=== PATIENT | male | born 1955 | race Caucasian/White ===

== ENCOUNTER → 2019-11-27 10:46 | Outpatient (CLI) | payer OTHER, SELFPAY ==
--- NOTE | ~2019-11-27 | US_ITS ---
EXAMINATION: US aorta DATE: 11/27/2019 11:02 INDICATION: Abdominal aortic aneurysm. TECHNIQUE: Grayscale, color Doppler, and pulsed Doppler images of the aorta and common iliac arteries were obtained. COMPARISON: CT abdomen and pelvis 12/15/2009 FINDINGS: The aorta demonstrates a 6.9 x 6.1 cm fusiform infrarenal aortic aneurysm. The right common iliac art mc measures 1.3 cm. The left common iliac artery measures 1.2 cm. IMPRESSION: 1. 6.9 cm fusiform infrarenal aortic aneurysm. Abdomen and pelvis CTA and surgical consultation are r ecommended. I called this result to Trang Ahumada on 11/27/19 at 11:39 AM. Reviewed, dictated and finalized at location A. ING TEACHER IMPRESSION: 1. 6.9 cm fusiform infrarenal aortic aneurysm. Abdomen and pelvis CTA and surgi kasey consultation are recommended. I called this result to Trang Ahumada on at 11:39 AM.
== END ==
PROVIDERS: PCP Family Medicine Adolescent Medicine; Visit Provider Family Medicine Adolescent Medicine
DX: I71.4 Abdominal aortic aneurysm, without rupture (principal)
CPT/HCPCS: 76775

== ENCOUNTER 2020-01-14 08:23 | Outpatient (CLI) | payer OTHER, SELFPAY ==
--- NOTE | ~2020-01-14 | NM_ITS ---
EXAMINATION: NM etelvina stress w perfusion DATE: 01/14/2020 11:33 INDICATION: Dyspnea TECHNIQUE: Rest images were obtained following intravenous administration of 10.08 mCi Tc99m tetrofos min (Myoview). The patient was infused intravenously with Lexiscan (Regadenoson). Then, 32.2 mCi Tc99 m tetrofosmin (Myoview) was administered intravenously, and stress images were obtained. Data was rec onstructed into short axis and horizontal and vertical long axis SPECT images. Gated SPECT images wer e also obtained. COMPARISON: None. FINDINGS: Moderate to severe partially reversible perfusion defect involving the mid and basilar infe rolateral and anterolateral segments consistent with combination of infarct and ischemia. There is ad ditional reversible ischemia mild at the apex, severe at the apical and mid anterior segments and mi ld to moderate at the apical, mid and basilar inferior segments. There is left ventricular enlargemen t with calculated end-diastolic volume of 233 mL. There is decreased wall motion correspond to the re gions of perfusion abnormality along the anterior, lateral and inferior caba. Left ventricular eject ion fraction measures 29%. IMPRESSION: 1. Combination of ischemia and infarct in the left circumflex coronary artery vascular distribution w ith additional large region of ischemia in the left anterior descending coronary artery vascular dist ribution. 2. Left ventricular enlargement with significantly decreased wall motion in the region of ischemia an d infarct resulting in moderately decreased left ventricular ejection fraction measuring 29%. Reviewed, dictated and finalized at location A. IMPRESSION: 1. Combination of ischemia and infarct in the left circumflex coronary artery v ascular distribution with additional large region of ischemia in the left anter ior descending coronary artery vascular distribution. 2. Left ventricular enlargement with significantly decreased wall motion in the region of ischemia and infarct resulting in moderately decreased left ventricu lar ejection fraction measuring 29%.
--- NOTE | 2020-01-14 08:28 | ECHO_ITS ---
Patient Info Name: Mark Coelho Age: 64 years : 1955 Gender: Male Ht: 68 in Wt: 180 lbs BSA: 2.00 m2 HR: 72 bpm BP: 133 / 92 mmHg Technical Quality: Good Exam Date: 01/14/2020 8:36 AM Exam Location: [facility] Patient Status: Outpatient Admit Date: 01/14/2020 Staff Ordering Physician: Enrique Poon DO Quality Control Lab Technician: Jessica Knight RDCS Attending Provider: Enrique Poon DO Referring Physician: Cleve ALVAREZ; Exam Type: CA echo doppler color flow Study Info Indications R06.09 - Other forms of dyspnea Complete two-dimensional, color flow and Doppler transthoracic echocardiogram is performed. Summary 1. Left ventricular chamber dimension is severely enlarged. 2. Entire posterior wall and entire lateral wall are akinetic. Inferior wall is hypokinetic. 3. Left ventricular systolic function is severely reduced, estimated at 25-30%. 4. The left ventricular diastolic function is grade I diastolic dysfunction. 5. E/e' 12 is mildly elevated. 6. Global longitudinal strain is abnormal at -7.0%. 7. Left atrial chamber dimension is mildly enlarged. 8. There is moderate aortic valve sclerosis. 9. There is mild aortic valve regurgitation. 10. No pulmonary hypertension, estimated pulmonary arterial systolic pressure of 30 mmHg. 11. There is mild tricuspid valve regurgitation. Left Ventricle E/e' 12 is mildly elevated. Global longitudinal strain is abnormal at -7.0%. Entire posterior wall and entire lateral wall are akinetic. Inferior wall is hypokinetic. Left ventricular chamber dimension is severely enlarged. Left ventricular systolic function is severely reduced, estimated at 25-30%. The left ventricular diastolic function is grade I diastolic dysfunction. Right Ventricle Right ventricular chamber dimension is normal. Right ventricular systolic function is normal. Left Atria Left atrial chamber dimension is mildly enlarged. Right Atria Right atrial chamber dimension is normal. Aortic Valve The aortic valve is trileaflet. There is moderate aortic valve sclerosis. There is no aortic valve stenosis. There is mild aortic valve regurgitation. Pulmonic Valve There is no pulmonic regurgitation. Mitral Valve There is no mitral valve stenosis. There is no mitral valve regurgitation. Tricuspid Valve No pulmonary hypertension, estimated pulmonary arterial systolic pressure of 30 mmHg. There is mild tricuspid valve regurgitation. Pericardium/Pleural There is no pericardial effusion. Inferior Vena Cava Normal inferior vena cava with >50% collapse upon inspiration consistent with normal right atrial pressure, 5 mmHg. Aorta The aortic root size at the sinus of Valsalva is normal. Tricuspid Valve Name Value Normal Estimated PAP/RSVP RA Pressure 5 mmHg <=5 Report Signatures
--- NOTE | 2020-01-14 08:28 | EST_ITS ---
Patient Info Name: Mark Coelho Age: 64 years : 1955 Gender: Male Ht: 68 in Wt: 180 lbs BSA: 2.00 m2 HR: 67 bpm BP: 116 / 74 mmHg Exam Date: 01/14/2020 9:50 AM Exam Location: [facility] Stress Patient Status: Outpatient Admit Date: 01/14/2020 Staff Ordering Physician: Enrique Poon DO Attending Provider: Enrique Poon DO Exercise Technologist: Jessica Knight RDCS Exercise Physician: Enrique Poon DO Exam Type: CA stress etelvina w NM Study Info Indications R06.09 - Other forms of dyspnea A regadenoson stress test was performed. Summary 1. 1. Negative lexiscan stress test for ischemic ST changes by ECG criteria. 2. 2. Stable hemodynamics throughout the test. 3. 3. Nuclear scan to follow and will be reported separately. Please correlate with it. 4. 4. Patient informed of the above results. Protocol: Lexiscan Stress ECG Details Stage: REST Duration (min): 25 min : 45 sec HR (bpm): 68 SBP (mmHg): 116 DBP (mmHg): 74 Stage: REST Duration (min): 30 min : 38 sec HR (bpm): 67 SBP (mmHg): 116 DBP (mmHg): 74 Stage: STAGE 1 Duration (min): 0 min : 59 sec HR (bpm): 78 SBP (mmHg): 131 DBP (mmHg): 76 Stage: RECOVERY Duration (min): 1 min : 0 sec HR (bpm): 92 SBP (mmHg): 131 DBP (mmHg): 76 Stage: RECOVERY Duration (min): 2 min : 0 sec HR (bpm): 90 SBP (mmHg): 131 DBP (mmHg): 76 Stage: RECOVERY Duration (min): 3 min : 0 sec HR (bpm): 91 SBP (mmHg): 106 DBP (mmHg): 69 Stage: RECOVERY Duration (min): 4 min : 0 sec HR (bpm): 85 SBP (mmHg): 106 DBP (mmHg): 69 Stage: RECOVERY Duration (min): 4 min : 38 sec HR (bpm): 89 SBP (mmHg): 113 DBP (mmHg): 69 Rest HR: 67 bpm Peak HR: 92 bpm Rest Sys BP: 116 mmHg Peak Sys BP: 131 mmHg Max Pred HR: 154 bpm % Max Pred HR: 60 % Target HR: 131 bpm Max RPP: 12,052 bpm*mmHg Termination Reason: Completed protocol Cardiac Symptoms: Chest tightness, sob, upset stomach Total Time: 1 min : 0 sec Rest Ann BP: 74 mmHg Peak Ann BP: 76 mmHg Total Dose: 0.4 mg Resting ECG Sinus rhythm, IVCD, borderline ST-T wave in inf/lat leads. Stress ECG No ST changes. Arrhythmias None. Report Signatures
== END 2020-01-14 08:24 | disposition home or self-care (01) ==
LOC: ANHCARD 08:26
PROVIDERS: PCP Family Medicine Adolescent Medicine; Visit Provider Internal Medicine Cardiovascular Disease
DX: R06.09 Other forms of dyspnea (principal); I25.9 Chronic ischemic heart disease, unspecified; I21.9 Acute myocardial infarction, unspecified; I51.7 Cardiomegaly
CPT/HCPCS: 78452; 93017; 93306; A9502; J2785

== ENCOUNTER 2020-03-03 00:29 | Outpatient (CLI) | payer OTHER, SELFPAY ==
[2020-03-03 18:40] LABS: SARS-CoV-2 RNA PCR Negative
== END 2020-03-03 00:30 | disposition home or self-care (01) ==
LOC: ANHCOVIDDT 00:29
PROVIDERS: PCP Family Medicine Adolescent Medicine; Visit Provider Specialist
DX: Z01.818 Encounter for other preprocedural examination (principal); Z11.59 Encounter for screening for other viral diseases
CPT/HCPCS: 87635; C9803; U0003

== ENCOUNTER 2020-03-06 05:38 | Day surgery (SDC) | payer OTHER, SELFPAY ==
[2020-03-06] VITALS (15 sets, daily range): BP systolic 105–134; BP diastolic 67–94; PULSE 59–78; RESP 14–20; TEMP 36.3; O2SAT 96–100; BMI 28.2
[2020-03-06 07:47] LABS: Basophils Absolute Auto 0.1 K/mm3 (0.0-0.1); Eosinophils Absolute Auto 0.3 K/mm3 (0-0.3); Eosinophils Percent Auto 4.9 % (0-4.4); Hematocrit 37.2 % (42.0-52.0); Hemoglobin 12.6 g/dL (14.0-18.0); Immature Granulocyte Absolute 0.02 K/mm3 (0.00-0.031); Immature Granulocyte Percent A 0.3 % (0-0.5); Lymphocytes Absolute Auto 1.35 K/mm3 (0.9-3.2); Mean Corpuscular HGB Conc 33.9 g/dl (32-36); Mean Corpuscular Hemoglobin 31.2 pg (26-34); Mean Corpuscular Volume 92.1 fl (80-100); Mean Platelet Volume 9.8 fl (7.4-10.4); Monocytes Absolute Auto 0.6 K/mm3 (0.1-0.6); Monocytes Percent Auto 10.3 % (2.6-8.5); Neutrophils Absolute Auto 3.8 K/mm3 (1.3-6.7); Neutrophils Percent Auto 61.5 % (45.5-73.1); Platelet Count Result 196 k/mm3 (150-375); Red Blood Count 4.04 M/mm3 (4.6-6.20); Red Cell Distribution Width 13.1 % (11.5-14.5); White Blood Count 6.1 K/mm3 (4.5-10.0)
[2020-03-06 07:56] LABS: Prothrombin Time 13.1 Seconds (11.1-14.7)
[2020-03-06 08:00] LABS: Blood Urea Nitrogen 27 mg/dL (9-20); Carbon Dioxide 23 mmol/L (22-30); Chloride 111 mmol/L (98-107); Estimated CRCL calculation 34 ml/min; Estimated Glomerular Filt Rate 36; Glucose 147 mg/dL (75-110); Potassium 4.4 mmol/L (3.4-5.0); Sodium 140 mmol/L (137-145)
--- NOTE | 2020-03-06 09:01 | WPDMODSED ---
Moderate Sedation Note-Pt Data Patient Data Diagnosis: Coronary artery disease with previous bypass grafting and ischemic cardiomyopathy Exertional angina with abnormal nuclear stress test Abdominal aortic aneurysm patient undergoing preoperative cardiac risk assessment Present Complaint: 64-year-old patient with well known coronary artery disease, surgical revascularization many years ago who has been experiencing chronic stable exertional angina. He has been found to have a large abdominal aortic aneurysm. The patient is now considering surgical/procedural treatment of this. The patient in the past received an internal mammary graft to the LAD, a vein graft to the major diagonal branch and a vein graft to the largest OM branch of the circumflex. The surgical operative note does include comments that the patient's LAD was severely diffusely diseased at the time of that operation. Preoperative lab data today demonstrates patient does also have some chronic renal insufficiency. His creatinine level at 1.9 is not any different than it has been for approximately 1 year after I had conversations with his PCP a short time ago. Had a discussion with the patient that he is at increased risk for contrast nephropathy he understands this and we are both agreeable to proceed. Procedure to be performed/Plan: Coronary angiography and vein graft angiography as well as internal mammary graft angiography Will forego left ventriculography and attempt to perform a minimum number of angiograms to limit contrast exposure Patient will receive IV fluid prior to the procedure Allergies Allergy/AdvReac Type Severity Reaction Status Date / Time Sulfa (Sulfonamide Allergy Mild rash and Verified 03/06/20 07:36 Antibiotics) redness Home Medications Medication Instructions Recorded Confirmed Type aspirin 325 mg tablet,delayed 325 mg PO DAILY 01/02/20 03/06/20 History release atorvastatin 40 mg tablet 40 mg PO DAILY 01/02/20 03/06/20 History fenofibrate 160 mg tablet 160 mg PO DAILY 01/02/20 03/06/20 History furosemide 20 mg tablet 20 mg PO DAILY tablet 01/02/20 03/06/20 History isosorbide mononitrate 60 mg 60 mg PO DAILY 01/02/20 03/06/20 History tablet,extended release 24 hr metformin 500 mg tablet 1,000 mg PO BID 01/02/20 03/06/20 History metoprolol tartrate 100 mg tablet 100 mg PO BID tablet 01/02/20 03/06/20 History nitroglycerin 0.4 mg sublingual 0.4 mg SUBLINGUAL DAILY tablet 01/02/20 03/06/20 History tablet omega-3 fatty acids 1,000 mg 1,000 mg PO DAILY 01/02/20 03/06/20 History capsule sitagliptin 100 mg tablet 100 mg PO DAILY 01/02/20 03/06/20 History niacin 500 mg tablet 500 mg PO DAILY #30 tablet 01/03/20 03/06/20 Rx glimepiride 2 mg PO DAILY 03/06/20 03/06/20 History Current Medications: Active Medications Sodium Chloride (Normal Saline Iv) 500 mls @ 100 mls/hr IV CONT .Q5H TRINH Sedation/Anesthesia: No previous sedation/anesthesia problems (including family history). [facility] Past Medical History Medical History (Updated 01/02/20 @ 10:59 by Enrique Poon DO) Diabetes Hyperlipidemia Stroke Surgical History Surgical History (Updated 01/02/20 @ 10:28 by Lora Koch CMA) S/P triple vessel bypass Family History Family History (Updated 01/02/20 @ 10:28 by Lora Koch CMA) Mother Heart disease Diabetes mellitus Grandparent Heart disease Social History Social History (Updated 01/02/20 @ 10:28 by Lora Koch CMA) Smoking status: Never smoker Alcohol intake: never Mod Sed Physical Exam Physical Exam Pre Procedural Exam: Normal: Appearance, Eyes, Nose, Neck, Throat, Airway, Lungs, Heart Rate, Heart Rhythm, Neuro Exam and Extremities and Variation: Heart Size (PMI enlarged and laterally displaced) Hours since solid foods: 12 Hours since liquid intake: 12 Internal Medicine - PN: Obj Da Vital Signs Vital Signs: Vital Signs - 24 hr 03/06/20 07:35 Temperature 36.3 C L P
--- NOTE | 2020-03-06 10:18 | WPDCARDPROC ---
Cardiac Cath Procedure Note Date of procedure:: 03/06/20 Performing physician:: Juan José Tierney MD Indication:: Coronary artery disease remote history of coronary bypass grafting ischemic cardiomyopathy chronic stable angina large abdominal aortic aneurysm, patient undergoing preoperative risk assessment chronic kidney disease Brief clinical history:: 64-year-old man with well known multivessel coronary disease despite coronary bypass grafting 2008 has had chronic stable angina. Now has been found to have a large abdominal aortic aneurysm that is being considered a candidate surgical/ procedure treatment of this. Preoperative Lexiscan nuclear study demonstrates poor left ventricular function as well as ischemia in the distribution of the LAD and circumflex. . In this setting a follow-up angiogram has been requested. Because of renal insufficiency a I will forego left ventriculogram Procedure Procedure performed:: coronary angiography internal mammary graft angiography aortic root injection Sedation/Medication given:: fentanyl 50 mg Versed 2 mg case start time 9:37 a.m. case end time 10:13 a.m. sedation provided by Zenaida Braswell RN , trained observer Access site:: right femoral artery Estimated blood loss:: 15-20 cc Procedure note:: patient was brought to the cardiac catheterization lab in the postabsorptive state the right femoral triangle was prepped and draped in the typical fashion anesthesia was provided with 15 cc of lidocaine infiltrated locally. Using the modified Seldinger technique the right femoral artery was punctured and a 5 Peruvian vascular sheath was placed. After this I performed left coronary angiography using a standard 5 Peruvian FL4 catheter. This catheter was then withdrawn over a long exchange wire and a 5 Peruvian JR4 catheter was used to engage inject the eyak right coronary artery as well as the left internal mammary artery. I was unable to visualize either of the saphenous vein grafts with the right coronary catheter although it appeared to mechanically engage at least 1 of the grafts. I then changed over the long exchange wire for a LCB catheter which also appeared to mechanically engage both grafts but there was no evidence of antegrade flow. Lastly this catheter was exchanged over the long exchange wire for a pigtail catheter and aortic root injection was done in the 40 degree AMERICAN projection. After this the case was terminated. The sheaths pigtail catheter was removed over a guidewire the sheath was flushed he was taken to the holding area for manual sheath removal. Procedure was uncomplicated. 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 Findings:: Central aortic pressure is 132/82 the left main coronary artery is medium in caliber and is patent the LAD is 100% occluded right at its ostium. The circumflex has moderate proximal disease the 1st OM branch is patent with modest disease with good flow. Just after the 1st marginal branch the circumflex is 100% occluded with antegrade bridging collaterals filling the 2nd marginal and some filling into the distal circumflex. There is no evidence of competitive flow in the circumflex. Right coronary artery is 100% occluded right at its origin left internal mammary artery is moderate to large in caliber it provides excellent flow into the LAD its anastomosis into the LAD is nicely patent and fills the majority of the LAD nicely. There is evidence of collateral flow from the LAD to the to the PDA and RPL. Aortic root injection demonstrates modest enlargement of the aortic root there is no evidence of any filling into a saphenous vein graft. Conclusion:: Severe multivessel coronary artery disease with: total occlusion of the LAD at its ostium total occlusion of the circumflex after the 1st OM branch with bridging collaterals to the the distal marginal and distal circumflex total occlusion of the right coronary artery at its
== END 2020-03-06 16:25 | disposition home or self-care (01) ==
PROVIDERS: PCP Family Medicine Adolescent Medicine; Visit Provider Specialist
DX: Z01.810 Encounter for preprocedural cardiovascular examination (principal); I71.4 Abdominal aortic aneurysm, without rupture; I25.718 Atherosclerosis of autologous vein coronary artery bypass graft(s) with other forms of angina pectoris; I25.118 Atherosclerotic heart disease of native coronary artery with other forms of angina pectoris; I25.5 Ischemic cardiomyopathy; Z95.1 Presence of aortocoronary bypass graft; R94.39 Abnormal result of other cardiovascular function study; E78.5 Hyperlipidemia, unspecified; E11.9 Type 2 diabetes mellitus without complications; Z86.73 Personal history of transient ischemic attack (TIA), and cerebral infarction without residual deficits; Z79.84 Long term (current) use of oral hypoglycemic drugs; Z79.82 Long term (current) use of aspirin
CPT/HCPCS: 36415; 80048; 85025; 85610; 93455; C1769; C1887; C1894; J1644; J2250; J3010

== ENCOUNTER → 2020-09-21 09:09 | Outpatient (CLI) | payer OTHER, SELFPAY ==
--- NOTE | ~2020-09-21 | XR_ITS ---
EXAMINATION: XR toe 2nd LT min 2V DATE: 09/21/2020 09:29 INDICATION: Ulcer at the left second proximal interphalangeal joint. TECHNIQUE: Dorsal plantar, lateral and 2 oblique views of the left second were obtained. COMPARISON: None FINDINGS: There is a fracture at the head of the left second proximal phalanx with mild lateral displacement of a fragment which appears to comprise the lateral condyle. There is plantar dislocation of the middle phalanx. No definitive osteolysis to suggest osteomyelitis however assessment is somewhat limited by the fracture and malalignment. Mild osteoarthritis at the first metatarsophalangeal joint. IMPRESSION: 1. Plantar dislocation at the second proximal interphalangeal joint with mildly displaced intra-artic ular fracture of the head of the proximal phalanx. Reviewed, dictated and finalized at location A. R LAYER HELPER IMPRESSION: 1. Plantar dislocation at the second proximal interphalangeal joint with mildly displaced intra-articular fracture of the head of the proximal phalanx.
== END ==
PROVIDERS: PCP Family Medicine Adolescent Medicine; Visit Provider Family Medicine Adolescent Medicine
DX: L97.529 Non-pressure chronic ulcer of other part of left foot with unspecified severity (principal); S93.115A Dislocation of interphalangeal joint of left lesser toe(s), initial encounter
CPT/HCPCS: 73660

== ENCOUNTER 2020-12-24 14:06 | Outpatient (CLI) | payer OTHER, MEDICARE, SELFPAY | END 2020-12-24 14:07 | disposition home or self-care (01) | PROVIDERS: PCP Family Medicine Adolescent Medicine | DX: Z23 Encounter for immunization (principal) | CPT/HCPCS: 0001A; 91300 ==

== ENCOUNTER 2021-01-14 14:11 | Outpatient (CLI) | payer OTHER, MEDICARE, SELFPAY | END 2021-01-14 14:12 | disposition home or self-care (01) | LOC: ANHCOVIDVC 14:11 | PROVIDERS: PCP Family Medicine Adolescent Medicine | DX: Z23 Encounter for immunization (principal) | CPT/HCPCS: 0002A; 91300 ==

== ENCOUNTER 2022-05-30 09:33 | Inpatient (IN) | payer OTHER, SELFPAY ==
[2022-05-30] VITALS (9 sets, daily range): BP systolic 133–155; BP diastolic 65–82; PULSE 67–77; RESP 16–19; TEMP 36.3–36.7; O2SAT 97–100; BMI 27.3
--- NOTE | ~2022-05-30 | CT_ITS ---
EXAMINATION: CT brain wo con DATE: 05/30/2022 23:26 INDICATION: Confusion TECHNIQUE: Computed tomography (CT) of the head was performed without intravenous contrast. Sagittal and coronal reconstructions were performed. The mA was adjusted according to patient size. Iterative reconstruction technique was employed. The dose-length product was 605.33 mGy-cm. COMPARISON: None FINDINGS: Small region of encephalomalacia in the right cerebellar hemisphere consistent with old infarct. Brooks tional smaller old lacunar infarcts at the right side of the lucas, right thalamus and in the bilatera l lentiform nuclei. No acute intracranial hemorrhage, acute infarction or abnormal extra axial fluid collection. There is additional minimal scattered white matter hypoattenuation consistent with chroni c small vessel ischemic disease. Symmetric prominence of the sulci consistent with mild age-appropria te diffuse cerebral volume loss. Ventricles are normal and symmetric. No mass/mass effect. The orbits , paranasal sinuses and mastoid air cells are normal. IMPRESSION: 1. No acute intracranial process. 2. Chronic infarcts in the right cerebral hemisphere, right lucas, right thalamus and bilateral lentif orm nuclei. Reviewed, dictated and finalized at location A. IMPRESSION: 1. No acute intracranial process. 2. Chronic infarcts in the right cerebral hemisphere, right lucas, right thalamu s and bilateral lentiform nuclei.
--- NOTE | ~2022-05-30 | XR_ITS ---
XR abdomen/kub 1V 05/31/2022 09:28 Indication: Kidney stones Procedure: KUB Comparison: Ultrasound dated 05/30/2022. Findings: Bowel gas pattern is nonobstructive. Moderate colonic fecal loading. No definite renal ston es are identified. There is an endovascular stent in the abdominal aorta and common iliac arteries. N o acute osseous abnormality. Impression: 1: No renal stones identified. Consider correlation with CT. Reviewed, dictated and finalized at location B. Impression: 1: No renal stones identified. Consider correlation with CT.
--- NOTE | ~2022-05-30 | US_ITS ---
US renal BI 05/30/2022 12:45 Procedure: Realtime transabdominal ultrasound of the kidneys and bladder. Indication: Renal insufficiency Comparison: No prior studies for comparison. Findings: Renal echotexture is normal bilaterally without hydronephrosis, contour deforming mass. The re are bilateral renal cysts, largest on the left measuring 4.2 cm. There are echogenic foci in the l eft kidney measuring up to 11 mm with posterior shadowing, consistent with nonobstructing stones. The right kidney measures 9.2 cm and left kidney measures 10.8 cm. Bladder within normal limits. Impression: 1: Nonobstructing left nephrolithiasis. 2: Bilateral renal cysts. Reviewed, dictated and finalized at location B. Impression: 1: Nonobstructing left nephrolithiasis. 2: Bilateral renal cysts.
[2022-05-30] MEDS: DEXTROSE 50% 25 GM/50 ML SYRINGE (09:54)
[2022-05-30 10:04] LABS: Glucose Point of Care 109 mg/dl (65-105)
[2022-05-30 10:04] LABS: Glucose Point of Care 26 mg/dl (65-105)
[2022-05-30 10:05] LABS: Basophils Absolute Auto 0.1 K/mm3 (0.0-0.1); Basophils Percent Auto 0.8 % (0.2-1.2); Eosinophils Absolute Auto 0.4 K/mm3 (0-0.3); Eosinophils Percent Auto 5.6 % (0-4.4); Hematocrit 37.5 % (42.0-52.0); Hemoglobin 11.6 g/dL (14.0-18.0); Immature Granulocyte Absolute 0.04 K/mm3 (0.00-0.031); Immature Granulocyte Percent A 0.5 % (0-0.5); Lymphocytes Absolute Auto 0.86 K/mm3 (0.9-3.2); Lymphocytes Percent Auto 11.4 % (18.3-44.2); Mean Corpuscular HGB Conc 30.9 g/dl (32-36); Mean Corpuscular Hemoglobin 29.3 pg (26-34); Mean Corpuscular Volume 94.7 fl (80-100); Mean Platelet Volume 10.3 fl (7.4-10.4); Monocytes Absolute Auto 0.6 K/mm3 (0.1-0.6); Monocytes Percent Auto 7.3 % (2.6-8.5); Neutrophils Absolute Auto 5.6 K/mm3 (1.3-6.7); Neutrophils Percent Auto 74.4 % (45.5-73.1); Platelet Count Result 203 k/mm3 (150-375); Red Blood Count 3.96 M/mm3 (4.6-6.20); Red Cell Distribution Width 13.6 % (11.5-14.5); White Blood Count 7.5 K/mm3 (4.5-10.0)
[2022-05-30 10:17] LABS: Alanine Aminotransferase 16 U/L (6-50); Albumin Level 4.4 g/dL (3.5-5.1); Alkaline Phosphatase 49 U/L (38-126); Anion Gap 9 mmol/L (8-16); Aspartate Amino Transferase 19 U/L (17-59); Bilirubin,Total 0.4 mg/dL (0.2-1.3); Blood Urea Nitrogen 46 mg/dL (9-20); Carbon Dioxide 18 mmol/L (22-30); Chloride 108 mmol/L (98-107); Estimated CRCL calculation 19 ml/min; Estimated Glomerular Filt Rate 18; Glucose 199 mg/dL (65-110); Potassium 5.7 mmol/L (3.4-5.0); Sodium 135 mmol/L (137-145)
--- NOTE | 2022-05-30 10:21 | ECG_ITS ---
Measurements Intervals [place] Rate: 71 P: 7 ND: 248 QRS: 63 QRSD: 127 T: 206 QT: 394 QTc: 430 Interpretive Statements SINUS RHYTHM WITH FIRST DEGREE AV BLOCK POSSIBLE ANTERIOR MYOCARDIAL INFARCTION , OF INDETERMINATE AGE [30 ms Q WAVE IN V3/V4, OR R < 0.2 mV IN V4] ABNORMAL ECG NO PREVIOUS ECG AVAILABLE FOR COMPARISON Electronically Signed On 05-30-2022 14:03:50 CDT by Jua nJosé Tierney M.D.
[2022-05-30] MEDS: SODIUM CHLORIDE 0.9% IV 1,000 ML 999 ML IV CONT (10:45)
--- NOTE | 2022-05-30 10:55 | ED.GENADULT ---
HPI - General Adult General Chief complaint: Altered Mental Status Stated complaint: confusion? Time Seen by Provider: 05/30/22 09:36 Source: RN notes reviewed History of Present Illness HPI narrative: Patient presents emergency department from home for altered mental status. The patient's son is present with the patient states that he last checked his father yesterday and the patient been normal yesterday evening he states that this morning he had talked to his father and he had told him he was confused and did not seem to be making sense. The son had come over that time and brought him to the emergency department for further evaluation. The son states the patient does live at home by himself states he does not regularly check his blood sugars he is on oral blood sugar medications and for a while recently had felt that they are making his blood sugars too low and cut all of his medications in half on his own he states that he felt his blood sugars were too high and had recently restarted taking his blood pressure patientis able to tell me his name at this time. States he does feel confused denies any pain Related Data Home Medications Medication Instructions Recorded Confirmed aspirin 325 mg tablet,delayed 325 mg PO DAILY 01/02/20 04/04/22 release fenofibrate 160 mg tablet 160 mg PO DAILY 01/02/20 04/04/22 nitroglycerin 0.4 mg sublingual 0.4 mg sublingual DAILY 01/02/20 04/04/22 tablet omega-3 fatty acids 1,000 mg 4,000 mg PO DAILY 07/02/20 04/04/22 capsule (Fish Oil Concentrate) furosemide 20 mg tablet (Lasix) 20 mg PO DAILY 04/04/22 04/04/22 Allergies Allergy/AdvReac Type Severity Reaction Status Date / Time metformin Allergy Mild nausea Verified 05/30/22 09:55 diarrhea Sulfa (Sulfonamide Allergy Mild rash and Verified 05/30/22 09:55 Antibiotics) redness Review of Systems Review of Systems: Gen.: Denies fevers or chills Eyes: Denies eye pain or visual change ENT: Denies congestion Respiratory: Denies shortness of breath or cough CV: Denies chest pain or palpitations GI: Denies abdominal pain nausea, emesis Musculoskeletal: Denies back pain or muscle pain Neuro: See HPI Skin: Denies rash Endocrine: Reports diabetes mellitus Except as documented, all other systems reviewed and negative PMFSH Past Medical History Medical History Diabetes Hyperlipidemia Stroke Surgical History Surgical History (Updated 04/01/22 @ 11:39 by Es Dillard) History of abdominal aortic aneurysm repair S/P triple vessel bypass Family History Family History (Updated 04/04/22 @ 09:49 by Tyree Salvador MA) Mother Heart disease Diabetes mellitus Cerebrovascular accident Hypertension Grandparent Heart disease Acute myocardial infarction Hypertension Father Cerebrovascular accident Other Malignant neoplasm of prostate Social History Social History Smoking status: Never smoker Second hand tobacco smoke exposure: No Alcohol intake: never Substance use: never Substance use type: does not use Gender identity (if verbalized by the patient): Male Sexual Orientation (if Verbalized by the Patient): Straight or Heterosexual Spiritual care concerns: No Agree to blood products: Yes Exam Narrative: APPEARANCE: No acute distress, nontoxic, resting in bed EYES: EOMI HEENT: Normocephalic, atraumatic, OMM, mucosa dry RESPIRATORY: No respiratory distress Clear to auscultation bilaterally with no rhonchi wheezing or rales. CARDIOVASCULAR: Regular rate and rhythm without murmurs rubs or gallops. ABDOMINAL: Soft, nontender, nondistended, no rebound or guarding MUSCULOSKELETAl: Moves all extremities. No clubbing, cyanosis or edema. NEURO: Awake and alert x 1. Following commands, speech is slow no focal deficits SKIN:: Warm, dry. No rashes lesions or abrasions PSYCHIATRIC: Normal affe
--- NOTE | 2022-05-30 10:58 | PC.NURSE ---
Pt had a breakfast tray, ate 100%, pt is alert and oriented x3. Son at bedside.
[2022-05-30 11:02] LABS: Appearance Urine Clear (Clear); Bilirubin Urine Negative (Negative); Blood Urine Negative (Negative); Glucose Urine UA 2+ mg/dL (Negative); Ketones Urine Negative (Negative); Leukocyte Esterase Ur Negative LEU/UL (Negative); Nitrate Urine Negative (Negative); Protein Urine Negative (Negative); Urobilinogen Urine 0.2 mg/dL (<2.0)
[2022-05-30 11:05] LABS: Add Urine Microscopic? YES; Color Urine Light Yellow (Yellow)
[2022-05-30 11:06] LABS: Glucose Point of Care 109 mg/dl (65-105)
[2022-05-30 11:20] LABS: Mucus Urine Rare /lpf
[2022-05-30] MEDS: SODIUM BICARBONATE 8.4% 50 MEQ/50 ML SYRINGE IV PUSH (11:37)
[2022-05-30 12:10] LABS: Glucose Point of Care 90 mg/dl (65-105)
--- NOTE | 2022-05-30 12:24 | PC.NURSE ---
Pt taken to US.
[2022-05-30] MEDS: SODIUM CHLORIDE 0.9% IV 1,000 ML 100 ML IV CONT ×2 (13:19→22:09)
[2022-05-30 14:07] LABS: Glucose Point of Care 86 mg/dl (65-105)
--- NOTE | 2022-05-30 15:53 | PM.CNNEP ---
Assessment and Plan Assessment and plan (1) CKD (chronic kidney disease) stage 4, GFR 15-29 ml/min: Code(s): N18.4 - Chronic kidney disease, stage 4 (severe) Status: Acute Assessment and Plan: the patient has chronic kidney disease. He has has had gradually progressive kidney disease over the last couple of years. He does have hypertension is had this for a long time. This may be contributing. He also has diabetes which he has had for a while. He does not have diabetic retinopathy and he does not have much protein in the urine so it is less likely this is the major player but I suspect that this might be involved to some degree. He does have vascular disease as he has had strokes, coronary disease, and he has decreased pulses in the lower extremities so he probably has vascular disease in the kidneys too. He is only on a small amount of blood pressure medicines so I doubt if he has renal vascular hypertension. There other causes of kidney disease as well including allergic interstitial nephritis, glomerulonephritis, an infiltrative diseases. I think these are all less likely. At this point will get DERRICK, complements, sed rate, urine and serum immunofixation, kappa lambda ratio, and an intact PTH. (2) Hypoglycemia: Code(s): E16.2 - Hypoglycemia, unspecified Status: Acute Assessment and Plan: The patient's blood glucose was low. Because of the decreased kidney function his natural insulin is hanging around longer and the hypoglycemic meds can hang around longer as well. He will be getting a reduction in the dose of these medications. (3) Acute hyperkalemia: Code(s): E87.5 - Hyperkalemia Status: Acute Assessment and Plan: The patient has a high potassium. this may be due to his renal insufficiency and diet. He received some bicarbonate. Will recheck the potassium. If still high will give lokelma. (4) Type 2 diabetes mellitus with diabetic peripheral angiopathy without gangrene: Code(s): E11.51 - Type 2 diabetes mellitus with diabetic peripheral angiopathy without gangrene Status: Acute Assessment and Plan: He is on Accu-Cheks and sliding-scale insulin per hospitalist (5) Occlusion and stenosis of bilateral carotid arteries: Code(s): I65.23 - Occlusion and stenosis of bilateral carotid arteries Status: Acute Assessment and Plan: no recent symptoms (6) CAD (coronary artery disease), autologous vein bypass graft: Code(s): I25.810 - Atherosclerosis of coronary artery bypass graft(s) without angina pectoris Status: Acute Assessment and Plan: no chest pain or shortness of breast (7) Hypertension: Code(s): I10 - Essential (primary) hypertension Status: Acute Assessment and Plan: blood pressure is mildly high. Will see how it goes over the next day or 2. (8) Dyslipidemia: Code(s): E78.5 - Hyperlipidemia, unspecified Status: Acute Assessment and Plan: The patient is on feno fibrate and atorvastatin. (9) Metabolic acidosis: Code(s): E87.2 - Acidosis Status: Acute Assessment and Plan: This is most likely due to the chronic kidney disease. Will give oral bicarbonate. (10) Anemia in chronic kidney disease: Code(s): N18.9 - Chronic kidney disease, unspecified; D63.1 - Anemia in chronic kidney disease Status: Acute Assessment and Plan: Patient has anemia. This is likely due to his chronic kidney disease but there are other causes as well. Will check iron levels and stool guaiac. History of Present Illness Reason for Consult Consult date: 05/30/22 Chief Complaint Chief complaint: Hypoglycemia/Chronic Renal Sufficiency/Hyperkalemi History of Present Illness Narrative: Vaughn Moody is a very pleasant 66-year-old gentleman who has multiple medical problems including chronic kidney disease, diabetes, hypertension, s
[2022-05-30 16:51] LABS: Creatine Kinase 131 U/L (55-170)
[2022-05-30 16:59] LABS: Potassium 5.2 mmol/L (3.4-5.0)
[2022-05-30 17:12] LABS: Glucose Point of Care 95 mg/dl (65-105)
[2022-05-30 17:17] LABS: Parathyroid Intact 192.3 pg/mL (7.5-53.5)
[2022-05-30 17:29] LABS: Iron 65 ug/dL (49-181)
[2022-05-30 17:38] LABS: Percent Iron Saturation 18 % (20-50)
[2022-05-30 17:55] LABS: Creatinine Urine 53.1 mg/dL; Total Protein Urine Random 15 mg/dL; Ur Ttl Prot Creatinine Ratio 0.28 mg/mg (0-0.20)
[2022-05-30 17:57] LABS: Sodium Urine Random 147 meq/L
[2022-05-30 18:08] LABS: Complement C3 112 mg/dL (88-165)
[2022-05-30] MEDS: SODIUM BICARBONATE TAB 650 MG TABLET 1300 MG PO (20:09)
[2022-05-30 20:46] LABS: Glucose Point of Care 108 mg/dl (65-105)
--- NOTE | 2022-05-30 21:42 | PM.IMHP ---
H&P: HPI History of Present Illness Date/Time: 05/30/22 21:42 Chief Complaint: Altered mental status Narrative: this is a 66-year-old male patient who has a history of chronic renal failure stage IV, diabetes, hypertension, and CVA. The patient came to the emergency room due to altered mental status . According to the son the patient was normal yesterday when he checked on him. However this morning the patient appeared to be confused and was not making sense. The son went over to his house and brought him into the emergency room. The patient lives home alone and does not check his blood sugars regularly. The patient is on oral hypoglycemics and felt that maybe his sugars were too low so we cut his medications and half. The patient recently started taking his blood pressure medicine again. The patient was confused when he came to the emergency room. Nephrology has been consulted and has seen the patient already. The patient's potassium was initially 5.7 and then 5.2. Creatinine is 3.40 with a estimated GFR of 18. His blood sugars were noted to be 147, 128 and 199. Renal ultrasound shows nonobstructing left nephrolithiasis. Bilateral renal cyst. the patient Was placed on IV fluid. He is being admitted for observation status on 05/30/2022. Review of Systems Review of Systems: See HPI All systems reviewed & are unremarkable except as noted in HPI and below Constitutional: Constitutional: Reports as per HPI and Reports no additional constitutional complaints Eyes: Eyes: Reports as per HPI and Reports no additional eye complaints ENT: Reports system reviewed and no additional complaints, except as documented and Reports Normal hearing present Cardiovascular: Cardiovascular: Reports no additional cardiovascular complaints Respiratory: Respiratory: Reports no additional respiratory complaints and Reports no additional respiratory complaints Gastrointestinal: Gastrointestinal: Reports as per HPI and Reports no additional gastrointestinal complaints Musculoskeletal: Musculoskeletal: Reports no additional musculoskeletal complaints Integumentary/Breasts: Skin/Breast: Reports system reviewed and no additional complaints, except as docu and Reports as per HPI Neurologic: Reports system reviewed and no additional complaints, except as documented, Reports as per HPI and Reports Normal hearing present Psychiatric: Psychiatric: Reports no additional psychiatric complaints and Reports as per HPI Endocrine: Endocrine: Reports no additional endocrine complaints Hematologic/Lymphatic: Hematologic/Lymphatic: Reports no additional hematologic/lymphatic complaints Allergic/Immunologic: Allergic/Immunologic: Reports no additional allergic/immunologic complaints [facility]LY [facility] Past Medical History Medical History Anemia in chronic kidney disease CAD (coronary artery disease), autologous vein bypass graft Chronic systolic heart failure CKD (chronic kidney disease) stage 4, GFR 15-29 ml/min Diabetes Dyslipidemia Hyperlipidemia Hypertension Metabolic acidosis 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
[2022-05-30 23:17] LABS: IFOB Positive Control Positive; Immunochemical Fecal Occult Bl Negative (N)
[2022-05-31] VITALS (11 sets, daily range): BP systolic 146–157; BP diastolic 77–81; PULSE 64–78; RESP 16–20; TEMP 36.3–36.4; O2SAT 97–100
[2022-05-31 06:25] LABS: Basophils Absolute Auto 0.1 K/mm3 (0.0-0.1); Basophils Percent Auto 1.2 % (0.2-1.2); Eosinophils Absolute Auto 0.6 K/mm3 (0-0.3); Eosinophils Percent Auto 8.8 % (0-4.4); Hematocrit 36.6 % (42.0-52.0); Hemoglobin 11.5 g/dL (14.0-18.0); Immature Granulocyte Absolute 0.02 K/mm3 (0.00-0.031); Immature Granulocyte Percent A 0.3 % (0-0.5); Lymphocytes Absolute Auto 1.26 K/mm3 (0.9-3.2); Lymphocytes Percent Auto 18.4 % (18.3-44.2); Mean Corpuscular HGB Conc 31.4 g/dl (32-36); Mean Corpuscular Hemoglobin 29.5 pg (26-34); Mean Corpuscular Volume 93.8 fl (80-100); Mean Platelet Volume 10.4 fl (7.4-10.4); Monocytes Absolute Auto 0.7 K/mm3 (0.1-0.6); Monocytes Percent Auto 10.1 % (2.6-8.5); Neutrophils Absolute Auto 4.2 K/mm3 (1.3-6.7); Neutrophils Percent Auto 61.2 % (45.5-73.1); Platelet Count Result 190 k/mm3 (150-375); Red Cell Distribution Width 13.6 % (11.5-14.5); White Blood Count 6.9 K/mm3 (4.5-10.0)
[2022-05-31 06:32] LABS: Anion Gap 8 mmol/L (8-16); Blood Urea Nitrogen 41 mg/dL (9-20); Calcium 8.6 mg/dL (8.4-10.2); Carbon Dioxide 21 mmol/L (22-30); Chloride 110 mmol/L (98-107); Estimated CRCL calculation 19 ml/min; Estimated Glomerular Filt Rate 19; Glucose 87 mg/dL (65-110); Lactate Dehydrogenase 157 U/L (120-246); Phosphorus 3.3 mg/dL (2.5-4.5); Potassium 5.5 mmol/L (3.4-5.0); Sodium 139 mmol/L (137-145)
[2022-05-31 06:53] LABS: Hemoglobin A1C 6.1 % (<5.7)
[2022-05-31 07:19] LABS: INR 1.2; Prothrombin Time 14.7 Seconds (11.1-14.7)
--- NOTE | 2022-05-31 07:30 | PM.PNNEP ---
Progress Note: A&P Assessment and Plan (1) CKD (chronic kidney disease) stage 4, GFR 15-29 ml/min: Code(s): N18.4 - Chronic kidney disease, stage 4 (severe) Status: Acute Assessment and Plan: the patient has chronic kidney disease. He has has had gradually progressive kidney disease over the last couple of years. Evaluation is underway. Ultrasound shows left kidney stones and bilateral cysts. UA is bland. Urine electrolytes are non pre renal he has a small amount of protein in the urine, 280milligrams of protein/gram of creatinine. most labs are pending. Most likely this is from hypertension and diabetes, more the former than the latter. vascular disease probably contributes as well. He is getting IV fluids in case there is an acute component. (2) Hypoglycemia: Code(s): E16.2 - Hypoglycemia, unspecified Status: Acute Assessment and Plan: The patient's blood glucose was low. Because of the decreased kidney function his natural insulin is hanging around longer and the hypoglycemic meds can hang around longer as well. He will be getting a reduction in the dose of these medications. sugars are running between 90 and 110 (3) Acute hyperkalemia: Code(s): E87.5 - Hyperkalemia Status: Acute Assessment and Plan: The patient has a high potassium. repeat was better but this morning it is up to 5.5 again so I am giving some Lokelma. (4) Type 2 diabetes mellitus with diabetic peripheral angiopathy without gangrene: Code(s): E11.51 - Type 2 diabetes mellitus with diabetic peripheral angiopathy without gangrene Status: Acute Assessment and Plan: He is on Accu-Cheks and sliding-scale insulin per hospitalist (5) Occlusion and stenosis of bilateral carotid arteries: Code(s): I65.23 - Occlusion and stenosis of bilateral carotid arteries Status: Acute Assessment and Plan: no recent symptoms Head CT shows multiple old infarcts (6) CAD (coronary artery disease), autologous vein bypass graft: Code(s): I25.810 - Atherosclerosis of coronary artery bypass graft(s) without angina pectoris Status: Acute Assessment and Plan: no chest pain or shortness of breast (7) Hypertension: Code(s): I10 - Essential (primary) hypertension Status: Acute Assessment and Plan: blood pressure is mildly high. will add a small dose of amlodipine (8) Dyslipidemia: Code(s): E78.5 - Hyperlipidemia, unspecified Status: Acute Assessment and Plan: The patient is on fenofibrate and atorvastatin. (9) Metabolic acidosis: Code(s): E87.2 - Acidosis Status: Acute Assessment and Plan: This is most likely due to the chronic kidney disease. bicarbonate is better on the oral bicarb. (10) Anemia in chronic kidney disease: Code(s): N18.9 - Chronic kidney disease, unspecified; D63.1 - Anemia in chronic kidney disease Status: Acute Assessment and Plan: Patient has anemia. TSAT is low. This is likely due to his chronic kidney disease and iron deficiency. Await stool guaiac. (11) Presence of aortocoronary bypass graft: Code(s): Z95.1 - Presence of aortocoronary bypass graft Status: Acute (12) Nephrolithiasis: Code(s): N20.0 - Calculus of kidney Status: Acute Assessment and Plan: The patient has kidney stones on the right. Will check a uric acid and a KUB. (13) Secondary hyperparathyroidism: Code(s): N25.81 - Secondary hyperparathyroidism of renal origin Status: Acute Assessment and Plan: PTH is high. Will check a vitamin-D level. Subjective Date/time seen: 05/31/22 07:30 Interval history: Mark feels better today. Sugars running 80-110. He is hungry for breakfast. Review of Systems Cardiovascular: Cardiovascular: Reports no additional cardiova
[2022-05-31 07:48] LABS: Glucose Point of Care 77 mg/dl (65-105)
[2022-05-31 07:50] LABS: Uric Acid 6.1 mg/dL (3.5-8.5)
[2022-05-31 07:51] LABS: Free T4 Free Thyroxine Reflex 0.86 ng/dL (0.78-2.19)
[2022-05-31 08:48] LABS: Vitamin D 25 Hydroxy 36.2 ng/mL
[2022-05-31] MEDS: METOPROLOL SUCCINATE EXT REL 50 MG TABCR BY MOUTH (08:50)
[2022-05-31] MEDS: ATORVASTATIN 40 MG TABLET PO (08:50)
[2022-05-31] MEDS: SODIUM CHLORIDE 0.9% IV 1,000 ML 100 ML IV CONT ×2 (08:52→20:09)
[2022-05-31] MEDS: IRON SUCROSE COMPLEX 200 MG in SODIUM CHLORIDE 0.9% IV 50 ML 120 MG IVPB (08:52)
[2022-05-31] MEDS: SODIUM BICARBONATE TAB 650 MG TABLET 1300 MG PO ×2 (08:52→17:47)
[2022-05-31 09:02] LABS: Total Triiodothyronine (T3) 1.13 NG/ML (0.97-1.69)
--- NOTE | 2022-05-31 10:02 | PM.IMPN ---
Progress Note: A&P Assessment and Plan (1) Acute encephalopathy: Code(s): G93.40 - Encephalopathy, unspecified Status: Acute (2) Type 2 diabetes mellitus with diabetic chronic kidney disease: Code(s): E11.22 - Type 2 diabetes mellitus with diabetic chronic kidney disease Status: Acute (3) Secondary hyperparathyroidism: Code(s): N25.81 - Secondary hyperparathyroidism of renal origin Status: Acute (4) CKD (chronic kidney disease) stage 4, GFR 15-29 ml/min: Code(s): N18.4 - Chronic kidney disease, stage 4 (severe) Status: Acute (5) Chronic systolic heart failure: Code(s): I50.22 - Chronic systolic (congestive) heart failure Status: Acute (6) Nephrolithiasis: Code(s): N20.0 - Calculus of kidney Status: Acute (7) Dyslipidemia: Code(s): E78.5 - Hyperlipidemia, unspecified Status: Acute (8) Hypertension: Code(s): I10 - Essential (primary) hypertension Status: Acute (9) CAD (coronary artery disease), autologous vein bypass graft: Code(s): I25.810 - Atherosclerosis of coronary artery bypass graft(s) without angina pectoris Status: Acute (10) 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 -Nephrology has been consulted? and these other recommendations.? A renal ultrasound has been performed which was read as nonobstructing left nephrolithiasis.? Bilateral renal cysts. - continue with IV fluids ?as per nephrology note the patient has chronic kidney disease.? He has has had gradually progressive kidney disease over the last couple of years. ? He does have hypertension is had this for a long time.? This may be contributing. He also has diabetes which he has had for a while.? He does not have diabetic retinopathy and he does not have much protein in the urine so it is less likely this is the major player, but I suspect that this might be involved to some degree. He does have vascular disease as he has had strokes, coronary disease, and he has decreased pulses in the lower extremities so he probably has vascular disease in the kidneys too.? ? He is only on a small amount of blood pressure medicines so I doubt if he has renal vascular hypertension. ? There other causes of kidney disease as well including allergic interstitial nephritis, glomerulonephritis, an infiltrative diseases.? I think these are all less likely. ? At this point will get DERRICK, complements, sed rate, urine and serum immunofixation, kappa lambda ratio, and an intact PTH. ? The patient's blood glucose was low.? Because of the decreased kidney function his natural insulin is hanging around longer and the hypoglycemic meds can hang around longer as well.? He will be getting a reduction in the dose of these medications. Patient has anemia.? This is likely due to his chronic kidney disease but there are other causes as well.? Will check iron levels and stool guaiac? which has been collected -? Holding oral hypoglycemic medications. ? The patient has a high potassium.?this may be due to his renal insufficiency and diet. He received some bicarbonate.? Will recheck the potassium. ? If still high will give lokelma. -? Patient's potassium was initially 5.7 is now 5.2. -? 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
[2022-05-31 11:44] LABS: Glucose Point of Care 106 mg/dl (65-105)
[2022-05-31] MEDS: SODIUM ZIRCONIUM CYCLOSILICATE 10 GM POWD.PACK PO (12:15)
--- NOTE | 2022-05-31 13:54 | PCSTNOTE ---
Modified Barium Swallow completed. Patient showed no signs of penetration or aspiration with thin liquids. Other consistencies not trialed because patient was not following directions. Unable to trial compensatory strategies. Because of inability to follow swallowing precautions recommended diet is Level 6 (soft and bite sized) and nectar thickened liquids. Thank you for the referral of this patient.
--- NOTE | 2022-05-31 13:59 | PCSTNOTE ---
Patient seen for bedside swallowing evaluation. Just finished eating 100% of regular lunch, but was willing to trial water bolus by straw. No signs or symptoms of aspiration observed. Per nursing, patient has a history of occasionally swallowing difficulty. Per patient, sometimes when eating drier attendant foods such as rice, water is necessary to wash the food down and this is followed by coughing. Patient states he has never had any direct teaching of individualized or general safe swallowing strategies. Recommend level 7 diet (easy to chew) and thin liquids, and speech therapy for swallowing. Thank you for the referral of this patient. [ End ]
[2022-05-31 16:35] LABS: Glucose Point of Care 101 mg/dl (65-105)
[2022-05-31 21:09] LABS: Glucose Point of Care 109 mg/dl (65-105)
[2022-06-01] VITALS (9 sets, daily range): BP systolic 141–154; BP diastolic 65–77; PULSE 63–75; RESP 16–20; TEMP 36–36.6; O2SAT 97–98
[2022-06-01] MEDS: SODIUM CHLORIDE 0.9% IV 1,000 ML 100 ML IV CONT ×2 (05:31→15:07)
[2022-06-01 07:43] LABS: Glucose Point of Care 77 mg/dl (65-105)
[2022-06-01 08:21] LABS: EDCOVIDSCREEN Negative (Negative)
[2022-06-01] MEDS: METOPROLOL SUCCINATE EXT REL 50 MG TABCR BY MOUTH (08:37)
[2022-06-01] MEDS: ATORVASTATIN 40 MG TABLET PO (08:37)
[2022-06-01] MEDS: SODIUM BICARBONATE TAB 650 MG TABLET 1300 MG PO ×2 (08:37→16:14)
[2022-06-01] MEDS: FENOFIBRATE 160 MG TABLET PO (08:38)
[2022-06-01] MEDS: ISOSORBIDE MONONITRATE 60 MG TAB.ER.24H PO (08:38)
[2022-06-01 08:47] LABS: Albumin Level 4.4 g/dL (3.5-5.1); Anion Gap 10 mmol/L (8-16); Blood Urea Nitrogen 39 mg/dL (9-20); Calcium 9.2 mg/dL (8.4-10.2); Carbon Dioxide 19 mmol/L (22-30); Chloride 107 mmol/L (98-107); Estimated CRCL calculation 21 ml/min; Estimated Glomerular Filt Rate 21; Glucose 108 mg/dL (65-110); Phosphorus 2.9 mg/dL (2.5-4.5); Potassium 6.7 mmol/L (3.4-5.0); Sodium 136 mmol/L (137-145)
--- NOTE | 2022-06-01 08:53 | PC.NURSE ---
called critical K to MD Orantes, 6.7, reported MD to place orders.
--- NOTE | 2022-06-01 08:55 | ECG_ITS ---
Measurements Intervals [place] Rate: 69 P: 15 MA: 240 QRS: 48 QRSD: 130 T: 142 QT: 420 QTc: 450 Interpretive Statements SINUS RHYTHM WITH FIRST DEGREE AV BLOCK MODERATE INTRAVENTRICULAR CONDUCTION DELAY [110+ ms QRS DURATION] ST DEVIATION AND MODERATE T-WAVE ABNORMALITY, CONSIDER LATERAL ISCHEMIA [-0.1+ mV T WAVE IN I/aVL/V5/V6] ABNORMAL ECG Electronically Signed On 06-01-2022 10:49:17 CDT by Constantino Winters M.D.
[2022-06-01] MEDS: IRON SUCROSE COMPLEX 200 MG in SODIUM CHLORIDE 0.9% IV 50 ML 120 MG IVPB (09:15)
[2022-06-01] MEDS: SODIUM BICARBONATE 8.4% 50 MEQ/50 ML SYRINGE IV PUSH ×2 (10:05→15:00)
[2022-06-01 11:22] LABS: Glucose Point of Care 115 mg/dl (65-105)
--- NOTE | 2022-06-01 11:48 | PC.NURSE ---
MD Oseguera office called and report K 6.7 with tx orders given per MD Orantes, informed bmp will be recheck around 1300, issues with restarting IV prolonged infusion of calcium gluconate this morning.
--- NOTE | 2022-06-01 13:12 | PC.NURSE ---
called MD Oseguera to clarify 24hr urine order.
--- NOTE | 2022-06-01 13:17 | PC.NURSE ---
informed MD Oseguera that 24 hrs urine was sent down early.
[2022-06-01 13:34] LABS: Anion Gap 7 mmol/L (8-16); Blood Urea Nitrogen 41 mg/dL (9-20); Calcium 8.9 mg/dL (8.4-10.2); Carbon Dioxide 21 mmol/L (22-30); Chloride 108 mmol/L (98-107); Estimated CRCL calculation 21 ml/min; Estimated Glomerular Filt Rate 21; Glucose 124 mg/dL (65-110); Potassium 6.2 mmol/L (3.4-5.0); Sodium 136 mmol/L (137-145)
--- NOTE | 2022-06-01 13:35 | PC.NURSE ---
reported K 6.2 to MD Orantes
--- NOTE | 2022-06-01 13:49 | PC.NURSE ---
MD Orantes to place order r/t elevated K 6.2, trending down since am tx this morning, K was initially 6.7.
--- NOTE | 2022-06-01 13:50 | PM.IMPN ---
Progress Note: A&P Assessment and Plan (1) Acute hyperkalemia: Code(s): E87.5 - Hyperkalemia Status: Acute (2) Metabolic acidosis: Code(s): E87.2 - Acidosis Status: Acute (3) Hypoglycemia: Code(s): E16.2 - Hypoglycemia, unspecified Status: Acute (4) Acute encephalopathy: Code(s): G93.40 - Encephalopathy, unspecified Status: Acute (5) CKD (chronic kidney disease) stage 4, GFR 15-29 ml/min: Code(s): N18.4 - Chronic kidney disease, stage 4 (severe) Status: Acute (6) Anemia in chronic kidney disease: Code(s): N18.9 - Chronic kidney disease, unspecified; D63.1 - Anemia in chronic kidney disease Status: Acute (7) Type 2 diabetes mellitus with diabetic chronic kidney disease: Code(s): E11.22 - Type 2 diabetes mellitus with diabetic chronic kidney disease Status: Acute (8) Secondary hyperparathyroidism: Code(s): N25.81 - Secondary hyperparathyroidism of renal origin Status: Acute (9) Chronic systolic heart failure: Code(s): I50.22 - Chronic systolic (congestive) heart failure Status: Acute (10) Nephrolithiasis: Code(s): N20.0 - Calculus of kidney Status: Acute (11) Hypertension: Code(s): I10 - Essential (primary) hypertension Status: Acute (12) CAD (coronary artery disease), autologous vein bypass graft: Code(s): I25.810 - Atherosclerosis of coronary artery bypass graft(s) without angina pectoris Status: Acute (13) 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 Brain CT shows no acute intracranial process but does show chronic infarction right cerebellar hemisphere, right lucas, right thalamus and bilateral lentiform nuclei. Patient is mildly anemic with a hemoglobin 11.5. IV iron has been started. Hyperkalemia noted on admission. He also had metabolic acidosis with normal anion gap. Creatinine was 3.4 which is within his baseline. Glucose was low at 26 and was felt this was etiology of his altered mental status. Amaryl has been stopped. His hyperkalemia was treated appropriately with improvement but his potassium was worse today at 6.7. Nephrology made aware. Appropriate treatment was rendered and repeat potassium is improved to 6.2. Repeat treatment is underway. Will add a low-potassium diet. Add Lokalma. Renal ultrasound showing nonobstructing left nephrolithiasis and bilateral renal cysts. Continue to hold his lisinopril and Lasix. A1c was 6.1. Glucose well controlled. Will continue to follow. Continue oral bicarb. Metabolic acidosis slowly improving. SCDs for DVT prophylaxis. Subjective Date/time seen: 06/01/22 13:50 Interval history: 66yo male with hx of DM, HTN, CVA and CHF here for altered mental status. Assuming care. Chart reviewed. Patient feels well. He denies any chest pain or shortness of breath. No palpitations. No nausea or vomiting. No diarrhea. Exam Narrative: AF 96.8 154/66 65 20 98% ra Gen - NARD Chest - CTA bilaterally, nml RR CV - RRR S1/S2 Abd - Soft, NT/ND, Positive BS Ext - No pedal edema Neuro - Alert and appropriate. slow speech. Psych - Nml mood and affect Skin - Warm and dry Objective Data Vital Signs Vital Signs: Vital Signs - 24 hr 05/31/22 14:00 05/31/22 16:00 05/31/22 21:28 Temperature 97.5 F L 97.4 F L Pulse Rate 77 69 65 Respiratory Rate 20 18 Blood Pressure 149/77 H 146/80 H Pulse Oximetry 100 100 Oxygen Delivery 05/31/22 20:00 06/01/22 05:46 06/01/22 00:00 Temperature 96.8 F L Pulse Rate 64 67 67 Respiratory Rate 20 Blood Pressure 154/66 H Pulse Oximetry 98 Oxygen Delivery 06/01/22 04:00 06/01/22 08:37 05/16
--- NOTE | 2022-06-01 14:09 | PM.PNNEP ---
Progress Note: A&P Assessment and Plan (1) CKD (chronic kidney disease) stage 4, GFR 15-29 ml/min: Code(s): N18.4 - Chronic kidney disease, stage 4 (severe) Status: Acute Assessment and Plan: the patient has chronic kidney disease. He has has had gradually progressive kidney disease over the last couple of years. Ultrasound shows left kidney stones and bilateral cysts. UA is bland. Urine electrolytes are non pre renal he has a small amount of protein in the urine, 280milligrams of protein/gram of creatinine. C3 and C4 are normal. most labs are pending. Most likely this is from hypertension and diabetes, more the former than the latter. vascular disease probably contributes as well. He is getting IV fluids in case there is an acute component. His creatinine has not changed. Will DC the IV fluids. He is eating well. (2) Hypoglycemia: Code(s): E16.2 - Hypoglycemia, unspecified Status: Acute Assessment and Plan: The patient's blood glucose was low. Because of the decreased kidney function his natural insulin is hanging around longer and the hypoglycemic meds can hang around longer as well. He will be getting a reduction in the dose of these medications. sugars are running between 90 and 110 (3) Acute hyperkalemia: Code(s): E87.5 - Hyperkalemia Status: Acute Assessment and Plan: The patient has a high potassium. This improved but is back up again. He received lokelma and IV meds to get the potassium down per Dr Orantes. Now he is on scheduled lokelma. Will check another potassium today at 4:00 p.m. (4) Type 2 diabetes mellitus with diabetic peripheral angiopathy without gangrene: Code(s): E11.51 - Type 2 diabetes mellitus with diabetic peripheral angiopathy without gangrene Status: Acute Assessment and Plan: He is on Accu-Cheks and sliding-scale insulin per hospitalist (5) Occlusion and stenosis of bilateral carotid arteries: Code(s): I65.23 - Occlusion and stenosis of bilateral carotid arteries Status: Acute Assessment and Plan: no recent symptoms Head CT shows multiple old infarcts (6) CAD (coronary artery disease), autologous vein bypass graft: Code(s): I25.810 - Atherosclerosis of coronary artery bypass graft(s) without angina pectoris Status: Acute Assessment and Plan: no chest pain or shortness of breast (7) Hypertension: Code(s): I10 - Essential (primary) hypertension Status: Acute Assessment and Plan: blood pressure is mildly high. will add hydrochlorothiazide this can help with the potassium as well. (8) Dyslipidemia: Code(s): E78.5 - Hyperlipidemia, unspecified Status: Acute Assessment and Plan: The patient is on fenofibrate and atorvastatin. (9) Metabolic acidosis: Code(s): E87.2 - Acidosis Status: Acute Assessment and Plan: This is most likely due to the chronic kidney disease. bicarbonate is About the same. Will increase the dose of the bicarb. (10) Anemia in chronic kidney disease: Code(s): N18.9 - Chronic kidney disease, unspecified; D63.1 - Anemia in chronic kidney disease Status: Acute Assessment and Plan: Patient has anemia. TSAT is low. This is likely due to his chronic kidney disease and iron deficiency. Await stool guaiac. (11) Presence of aortocoronary bypass graft: Code(s): Z95.1 - Presence of aortocoronary bypass graft Status: Acute (12) Nephrolithiasis: Code(s): N20.0 - Calculus of kidney Status: Acute Assessment and Plan: The patient has kidney stones on the right. KUB negative. Uric acid a little high at 6.1. Will need stone evaluation down the line. (13) Secondary hyperparathyroidism: Code(s): N25.81 - Secondary hyperparathyroidism of renal origin Status: Acute Assessm
[2022-06-01] MEDS: CALCIUM GLUC 1,000 MG/NS 100ML 1,000 MG/100 ML BAG 200 MG IVPB (15:00)
[2022-06-01] MEDS: SODIUM ZIRCONIUM CYCLOSILICATE 10 GM POWD.PACK PO ×2 (15:00→17:23)
[2022-06-01] MEDS: hydroCHLOROthiazide 25 MG TABLET PO (15:08)
[2022-06-01 16:30] LABS: Potassium 5.7 mmol/L (3.4-5.0)
--- NOTE | 2022-06-01 16:46 | PC.NURSE ---
reporting K 5.7 after second tx of calcium gluconate 1000 mg IV and sodium bicarb 50 meq IV push, unable to reach. will try again soon.
[2022-06-01 17:06] LABS: Glucose Point of Care 95 mg/dl (65-105)
[2022-06-01 21:42] LABS: Glucose Point of Care 97 mg/dl (65-105)
[2022-06-02] VITALS (11 sets, daily range): BP systolic 138–158; BP diastolic 62–74; PULSE 61–74; RESP 16–18; TEMP 36.2–36.3; O2SAT 95–100
[2022-06-02] MEDS: SODIUM CHLORIDE 0.9% IV 1,000 ML 100 ML IV CONT
[2022-06-02 06:45] LABS: Kappa\\Lambda Light Chains 2.56 (0.26-1.65); Lambda Light Chain 25.4 mg/L (5.7-26.3)
[2022-06-02 07:21] LABS: Albumin Level 3.8 g/dL (3.5-5.1); Anion Gap 10 mmol/L (8-16); Blood Urea Nitrogen 42 mg/dL (9-20); Calcium 8.4 mg/dL (8.4-10.2); Carbon Dioxide 18 mmol/L (22-30); Chloride 110 mmol/L (98-107); Estimated CRCL calculation 22 ml/min; Estimated Glomerular Filt Rate 22; Glucose 90 mg/dL (65-110); Phosphorus 2.8 mg/dL (2.5-4.5); Potassium 5.7 mmol/L (3.4-5.0); Sodium 138 mmol/L (137-145)
[2022-06-02 07:47] LABS: Glucose Point of Care 76 mg/dl (65-105)
--- NOTE | 2022-06-02 08:19 | PM.PNNEP ---
Progress Note: A&P Assessment and Plan (1) CKD (chronic kidney disease) stage 4, GFR 15-29 ml/min: Code(s): N18.4 - Chronic kidney disease, stage 4 (severe) Status: Acute Assessment and Plan: the patient has chronic kidney disease. He has has had gradually progressive kidney disease over the last couple of years. Ultrasound shows left kidney stones and bilateral cysts. UA is bland. Urine electrolytes are non pre renal he has a small amount of protein in the urine, 280milligrams of protein/gram of creatinine. C3 and C4 are normal. ESR 20. K/L 2.56. rest of the labs are pending. Most likely this is from hypertension and diabetes, more the former than the latter. vascular disease probably contributes as well. His creatinine is slightly down, not much. await rest of eval stop ivfs. (2) Hypoglycemia: Code(s): E16.2 - Hypoglycemia, unspecified Status: Acute Assessment and Plan: The patient's blood glucose was low. it seems somewhat better but still drops a bit (3) Acute hyperkalemia: Code(s): E87.5 - Hyperkalemia Status: Acute Assessment and Plan: The patient has a high potassium. This improved but is back up again. he is on lokelma 10gm bid. will inc to 20 (4) Type 2 diabetes mellitus with diabetic peripheral angiopathy without gangrene: Code(s): E11.51 - Type 2 diabetes mellitus with diabetic peripheral angiopathy without gangrene Status: Acute Assessment and Plan: He is on Accu-Cheks and sliding-scale insulin per hospitalist (5) Occlusion and stenosis of bilateral carotid arteries: Code(s): I65.23 - Occlusion and stenosis of bilateral carotid arteries Status: Acute Assessment and Plan: no recent symptoms Head CT shows multiple old infarcts (6) CAD (coronary artery disease), autologous vein bypass graft: Code(s): I25.810 - Atherosclerosis of coronary artery bypass graft(s) without angina pectoris Status: Acute Assessment and Plan: no chest pain or shortness of breast (7) Hypertension: Code(s): I10 - Essential (primary) hypertension Status: Acute Assessment and Plan: blood pressure is mildly high. will add hydrochlorothiazide this can help with the potassium as well. (8) Dyslipidemia: Code(s): E78.5 - Hyperlipidemia, unspecified Status: Acute Assessment and Plan: The patient is on fenofibrate and atorvastatin. (9) Metabolic acidosis: Code(s): E87.2 - Acidosis Status: Acute Assessment and Plan: This is most likely due to the chronic kidney disease. bicarbonate is About the same. Will increase the dose of the bicarb. (10) Anemia in chronic kidney disease: Code(s): N18.9 - Chronic kidney disease, unspecified; D63.1 - Anemia in chronic kidney disease Status: Acute Assessment and Plan: Patient has anemia. TSAT is low. This is likely due to his chronic kidney disease and iron deficiency. Await stool guaiac. (11) Presence of aortocoronary bypass graft: Code(s): Z95.1 - Presence of aortocoronary bypass graft Status: Acute (12) Nephrolithiasis: Code(s): N20.0 - Calculus of kidney Status: Acute Assessment and Plan: The patient has kidney stones on the right. KUB negative. Uric acid a little high at 6.1. Will need stone evaluation down the line. (13) Secondary hyperparathyroidism: Code(s): N25.81 - Secondary hyperparathyroidism of renal origin Status: Acute Assessment and Plan: PTH is high. Vitamin-D okay. on a renal diet. Subjective Date/time seen: 06/02/22 08:10am Interval history: Mark feels about the same. walked in the halls with PTx the other day. no sob or cp eating okay. on renal diet now. Exam Narrative: WDWN in NAD skin no rash head ncat lungs clear bilateral
[2022-06-02] MEDS: ISOSORBIDE MONONITRATE 60 MG TAB.ER.24H PO (08:23)
[2022-06-02] MEDS: ATORVASTATIN 40 MG TABLET PO (08:23)
[2022-06-02] MEDS: FENOFIBRATE 160 MG TABLET PO (08:23)
[2022-06-02] MEDS: SODIUM BICARBONATE TAB 650 MG TABLET 1300 MG PO ×3 (08:23→18:07)
[2022-06-02] MEDS: IRON SUCROSE COMPLEX 200 MG in SODIUM CHLORIDE 0.9% IV 50 ML 120 MG IVPB (08:23)
[2022-06-02] MEDS: METOPROLOL SUCCINATE EXT REL 50 MG TABCR BY MOUTH (08:24)
[2022-06-02] MEDS: polyethylene glycoL 3350 17 GM POWD.PACK PO (08:24)
[2022-06-02] MEDS: hydroCHLOROthiazide 25 MG TABLET PO (08:24)
--- NOTE | 2022-06-02 08:30 | PM.IMPN ---
Progress Note: A&P Assessment and Plan (1) Acute hyperkalemia: Code(s): E87.5 - Hyperkalemia Status: Acute (2) Metabolic acidosis: Code(s): E87.2 - Acidosis Status: Acute (3) Hypoglycemia: Code(s): E16.2 - Hypoglycemia, unspecified Status: Acute (4) Acute encephalopathy: Code(s): G93.40 - Encephalopathy, unspecified Status: Acute (5) CKD (chronic kidney disease) stage 4, GFR 15-29 ml/min: Code(s): N18.4 - Chronic kidney disease, stage 4 (severe) Status: Acute (6) Anemia in chronic kidney disease: Code(s): N18.9 - Chronic kidney disease, unspecified; D63.1 - Anemia in chronic kidney disease Status: Acute (7) Type 2 diabetes mellitus with diabetic chronic kidney disease: Code(s): E11.22 - Type 2 diabetes mellitus with diabetic chronic kidney disease Status: Acute (8) Secondary hyperparathyroidism: Code(s): N25.81 - Secondary hyperparathyroidism of renal origin Status: Acute (9) Chronic systolic heart failure: Code(s): I50.22 - Chronic systolic (congestive) heart failure Status: Acute (10) Nephrolithiasis: Code(s): N20.0 - Calculus of kidney Status: Acute (11) Hypertension: Code(s): I10 - Essential (primary) hypertension Status: Acute (12) CAD (coronary artery disease), autologous vein bypass graft: Code(s): I25.810 - Atherosclerosis of coronary artery bypass graft(s) without angina pectoris Status: Acute (13) 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 Brain CT shows no acute intracranial process but does show chronic infarction right cerebellar hemisphere, right lucas, right thalamus and bilateral lentiform nuclei. Patient is mildly anemic with a hemoglobin 11.5. IV iron was started. Hyperkalemia noted on admission. He also had metabolic acidosis with normal anion gap. Creatinine was 3.4 which is within his baseline. Renal ultrasound showing nonobstructing left nephrolithiasis and bilateral renal cysts. Glucose was low at 26 and was felt this was etiology of his altered mental status. Amaryl was stopped. His hyperkalemia was treated appropriately with improvement but his potassium then worsened yesterday to 6.7. Nephrology made aware. Appropriate treatment was rendered and repeat potassium is better today at 5.7. Continue low-potassium diet. Continue Lokalma. Continue to hold his lisinopril and Lasix. HCTZ added. A1c was 6.1. Glucose well controlled. Will continue to follow. Oral bicarb dose increased. Metabolic acidosis about the same. SCDs for DVT prophylaxis. Subjective Date/time seen: 06/02/22 08:30 Interval history: 66yo male with hx of DM, HTN, CVA and CHF here for altered mental status. No issues overnight. Eating well. Slept off/or. Frequent nocturia but not uncommon. Did not check glucose at home prior to admission. No n/v. No diarrhea. Not out of bed much. Exam Narrative: AF 97.2 155/68 61 18 99% ra Gen - NARD Chest - CTA bilaterally, nml RR CV - RRR S1/S2; Tele showing rare PACs Abd - Soft, NT/ND, Positive BS Ext - No pedal edema Neuro - Alert and appropriate. slow speech. Psych - Nml mood and affect Skin - Warm and dry Objective Data Vital Signs Vital Signs: Vital Signs - 24 hr 06/01/22 08:37 06/01/22 12:00 06/01/22 14:00 Temperature 97.9 F Pulse Rate 66 65 64 Respiratory Rate 16 Blood Pressure 141/65 H Pulse Oximetry 98 06/01/22 20:00 06/01/22 22:00 06/02/22 05:16 Temperature 98 F 97.2 F L Pulse Rate 63 67 61 Respiratory Rate 16 18 Blood Pressure 153/77 H 155/68 H Pulse Oximetry 97 99 06/02/22 00:00 06/02/22 04:00 Temperature Pulse Rate 62 63
[2022-06-02 08:35] LABS: Erythrocyte Sedimentation Rate 20 mm/hr (0-20)
[2022-06-02 11:50] LABS: Glucose Point of Care 95 mg/dl (65-105)
--- NOTE | 2022-06-02 12:46 | PHAR ---
The patient's home med of Nitro SL sent to pharmacy to verify. The tabs are starting to decompose and the bottle has no label so I am unable to verify this home med. Nurse advised to obtain prn order for NTG SL and pull him a new bottle from [facility].
[2022-06-02] MEDS: SODIUM ZIRCONIUM CYCLOSILICATE 10 GM POWD.PACK 20 GM PO ×2 (14:58→21:19)
[2022-06-02 16:51] LABS: Glucose Point of Care 100 mg/dl (65-105)
[2022-06-02 20:39] LABS: Complement Total CH50 60 U/mL (31-60)
[2022-06-02 21:35] LABS: Glucose Point of Care 103 mg/dl (65-105)
[2022-06-03] VITALS (7 sets, daily range): BP systolic 125–143; BP diastolic 64–74; PULSE 64–79; RESP 16–20; TEMP 36.1–36.6; O2SAT 97–99
[2022-06-03 07:06] LABS: Ionized Calcium 4.7 mg/dL (4.8-5.6)
[2022-06-03 07:19] LABS: Anion Gap 10 mmol/L (8-16); Blood Urea Nitrogen 42 mg/dL (9-20); Calcium 8.7 mg/dL (8.4-10.2); Carbon Dioxide 20 mmol/L (22-30); Chloride 108 mmol/L (98-107); Estimated CRCL calculation 20 ml/min; Estimated Glomerular Filt Rate 19; Glucose 93 mg/dL (65-110); Phosphorus 3.5 mg/dL (2.5-4.5); Potassium 4.7 mmol/L (3.4-5.0); Sodium 138 mmol/L (137-145)
[2022-06-03] MEDS: ATORVASTATIN 40 MG TABLET PO (08:45)
[2022-06-03] MEDS: SODIUM BICARBONATE TAB 650 MG TABLET 1300 MG PO ×2 (08:45→11:45)
[2022-06-03] MEDS: hydroCHLOROthiazide 25 MG TABLET PO (08:45)
[2022-06-03] MEDS: METOPROLOL SUCCINATE EXT REL 50 MG TABCR BY MOUTH (08:46)
[2022-06-03] MEDS: FENOFIBRATE 160 MG TABLET PO (08:46)
[2022-06-03] MEDS: ISOSORBIDE MONONITRATE 60 MG TAB.ER.24H PO (08:46)
[2022-06-03] MEDS: IRON SUCROSE COMPLEX 200 MG in SODIUM CHLORIDE 0.9% IV 50 ML 120 MG IVPB (08:49)
[2022-06-03 08:50] LABS: Glucose Point of Care 110 mg/dl (65-105)
--- NOTE | 2022-06-03 10:34 | PM.PNNEP ---
Progress Note: A&P Assessment and Plan (1) CKD (chronic kidney disease) stage 4, GFR 15-29 ml/min: Code(s): N18.4 - Chronic kidney disease, stage 4 (severe) Status: Acute Assessment and Plan: the patient has chronic kidney disease. He has has had gradually progressive kidney disease over the last couple of years. Ultrasound shows left kidney stones and bilateral cysts. UA is bland. Urine electrolytes are non pre renal he has a small amount of protein in the urine, 280milligrams of protein/gram of creatinine. C3 and C4 are normal. ESR 20. K/L 2.56. Serum immuno fix is negative. rest of the labs are pending. Most likely this is from hypertension and diabetes, more the former than the latter. vascular disease probably contributes as well. His creatinine is slightly down, not much. await rest of eval This is most likely chronic kidney disease. It has not improved at all with IV fluids. He should see me in the office to continue management of same. (2) Hypoglycemia: Code(s): E16.2 - Hypoglycemia, unspecified Status: Acute Assessment and Plan: The patient's blood glucose was low. it seems somewhat better but still drops a bit (3) Acute hyperkalemia: Code(s): E87.5 - Hyperkalemia Status: Acute Assessment and Plan: The patient had a persistently high potassium. Now on low-potassium diet and Lokelma 20g b.i.d. His potassium is good. (4) Type 2 diabetes mellitus with diabetic peripheral angiopathy without gangrene: Code(s): E11.51 - Type 2 diabetes mellitus with diabetic peripheral angiopathy without gangrene Status: Acute Assessment and Plan: He is on Accu-Cheks and sliding-scale insulin per hospitalist (5) Occlusion and stenosis of bilateral carotid arteries: Code(s): I65.23 - Occlusion and stenosis of bilateral carotid arteries Status: Acute Assessment and Plan: no recent symptoms Head CT shows multiple old infarcts (6) CAD (coronary artery disease), autologous vein bypass graft: Code(s): I25.810 - Atherosclerosis of coronary artery bypass graft(s) without angina pectoris Status: Acute Assessment and Plan: no chest pain or shortness of breast (7) Hypertension: Code(s): I10 - Essential (primary) hypertension Status: Acute Assessment and Plan: blood pressure is mildly high. On hydrochlorothiazide and metoprolol. Blood pressure seems to be coming down a little bit. (8) Dyslipidemia: Code(s): E78.5 - Hyperlipidemia, unspecified Status: Acute Assessment and Plan: The patient is on fenofibrate and atorvastatin. (9) Metabolic acidosis: Code(s): E87.2 - Acidosis Status: Acute Assessment and Plan: This is most likely due to the chronic kidney disease. His bicarbonate will take a while to increase with the oral bicarb. This can be adjusted as an outpatient. (10) Anemia in chronic kidney disease: Code(s): N18.9 - Chronic kidney disease, unspecified; D63.1 - Anemia in chronic kidney disease Status: Acute Assessment and Plan: Patient has anemia. TSAT is low. This is likely due to his chronic kidney disease and iron deficiency. Await stool guaiac. (11) Presence of aortocoronary bypass graft: Code(s): Z95.1 - Presence of aortocoronary bypass graft Status: Acute (12) Nephrolithiasis: Code(s): N20.0 - Calculus of kidney Status: Acute Assessment and Plan: The patient has kidney stones on the right. KUB negative. Uric acid a little high at 6.1. Will need stone evaluation down the line. (13) Secondary hyperparathyroidism: Code(s): N25.81 - Secondary hyperparathyroidism of renal origin Status: Acute Assessment and Plan: PTH is high. Vitamin-D okay. on a renal diet. Subjective Date/time seen: 06/03/22 10:34
[2022-06-03] MEDS: SODIUM ZIRCONIUM CYCLOSILICATE 10 GM POWD.PACK 20 GM PO (10:45)
[2022-06-03 11:28] LABS: Glucose Point of Care 104 mg/dl (65-105)
--- NOTE | 2022-06-03 14:54 | PM.DS ---
DS: Admitting Diagnosis Discharge Date 06/03/22 Admitting Diagnosis Altered mental status DS: Discharge Diagnosis Discharge Diagnosis (1) Acute hyperkalemia: Code(s): E87.5 - Hyperkalemia Status: Acute (2) Metabolic acidosis: Code(s): E87.2 - Acidosis Status: Acute (3) Hypoglycemia: Code(s): E16.2 - Hypoglycemia, unspecified Status: Acute (4) Acute encephalopathy: Code(s): G93.40 - Encephalopathy, unspecified Status: Acute (5) CKD (chronic kidney disease) stage 4, GFR 15-29 ml/min: Code(s): N18.4 - Chronic kidney disease, stage 4 (severe) Status: Acute (6) Anemia in chronic kidney disease: Code(s): N18.9 - Chronic kidney disease, unspecified; D63.1 - Anemia in chronic kidney disease Status: Acute (7) Type 2 diabetes mellitus with diabetic chronic kidney disease: Code(s): E11.22 - Type 2 diabetes mellitus with diabetic chronic kidney disease Status: Acute (8) Secondary hyperparathyroidism: Code(s): N25.81 - Secondary hyperparathyroidism of renal origin Status: Acute (9) Chronic systolic heart failure: Code(s): I50.22 - Chronic systolic (congestive) heart failure Status: Acute (10) Nephrolithiasis: Code(s): N20.0 - Calculus of kidney Status: Acute (11) Hypertension: Code(s): I10 - Essential (primary) hypertension Status: Acute (12) CAD (coronary artery disease), autologous vein bypass graft: Code(s): I25.810 - Atherosclerosis of coronary artery bypass graft(s) without angina pectoris Status: Acute (13) 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 Please see H&P for details Hospital Course: Patient was brought to emergency room because of altered mental status. Brain CT showed no acute intracranial process but does show chronic infarction right cerebellar hemisphere, right lucas, right thalamus and bilateral lentiform nuclei. Patient is mildly anemic with a hemoglobin 11.5. TSAT was low and IV iron was started. Hyperkalemia noted on admission. He also had metabolic acidosis with normal anion gap. Creatinine was 3.4. Oral bicarb added. IV fluids started but without much improvement with renal function. Renal ultrasound showing nonobstructing left nephrolithiasis and bilateral renal cysts. Glucose was low at 26 and was felt this was etiology of his altered mental status. Amaryl was stopped. A1c 6.1. Glucose checked serial and remained well controlled off all his diabetic medications. He was given a meter. His hyperkalemia was treated appropriately with improvement but his potassium then worsened to 6.7. Appropriate treatment was rendered and Lokalma added. HCTZ added. Repeat potassium normal now. We held his lisinopril and Lasix. He has been up walking to the bathroom. Discussed with nephrology. Plan to change Lokalma to Kayexalate. He overall did well was able to be discharged home on 06/03/2022. Status at Discharge Cognitive/behavioral status at discharge: Stable Time Spent with Patient Time attestation: Total time spent providing and/or coordinating discharge services: 38 minutes Time spent: Greater than 30 minutes Exam Narrative: AF 97.9 125/64 70 20 97% ra Gen - NARD Chest - CTA bilaterally, nml RR CV - RRR S1/S2; Tele showing PVCs Abd - Soft, NT/ND, Positive BS Ext - No pedal edema Neuro - Alert and appropriate. Psych - Nml mood and affect Skin - Warm and dry DS: Data Data Completed and Pending Labs on day of discharge: Labs from last 24 hours 06/03/22 06/03/22 06/03/22 11:24 08:43 06:01 Sodium 138 Potassium 4.7 Ch
[2022-06-04 21:32] LABS: Anti Nuclear Antibody Titer 1:40 (Negative)
--- NOTE | 2022-06-05 09:49 | PC.NURSE ---
Patient called to clarify discharge medication list. All questions answered.
--- NOTE | 2022-06-07 09:33 | PC.NURSE ---
DERRICK titer and pattern faxed to Dr. Lora. Dr. Orantes aware of findings. DERRICK 1:40. Cytoplasmic.
== END 2022-06-03 16:45 | disposition home or self-care (01) | DRG 638 ==
LOC: ANHED 11:42 → ANH3MEDSUR 12:57
PROVIDERS: Internal Medicine Nephrology; Nurse Practitioner; Admitting Provider Internal Medicine; Emergency Provider Emergency Medicine; PCP Family Medicine Adolescent Medicine; Visit Provider Internal Medicine
DX: E11.649 Type 2 diabetes mellitus with hypoglycemia without coma (principal); E87.2 Acidosis; I13.0 Hypertensive heart and chronic kidney disease with heart failure and stage 1 through stage 4 chronic kidney disease, or unspecified chronic kidney disease; I50.22 Chronic systolic (congestive) heart failure; N18.4 Chronic kidney disease, stage 4 (severe); E11.22 Type 2 diabetes mellitus with diabetic chronic kidney disease; E11.51 Type 2 diabetes mellitus with diabetic peripheral angiopathy without gangrene; E87.5 Hyperkalemia; N25.81 Secondary hyperparathyroidism of renal origin; D63.1 Anemia in chronic kidney disease; I65.23 Occlusion and stenosis of bilateral carotid arteries; I25.10 Atherosclerotic heart disease of native coronary artery without angina pectoris; E78.5 Hyperlipidemia, unspecified; N20.0 Calculus of kidney; I69.310 Attention and concentration deficit following cerebral infarction; I69.344 Monoplegia of lower limb following cerebral infarction affecting left non-dominant side; Z20.822 Contact with and (suspected) exposure to COVID-19; Z79.82 Long term (current) use of aspirin; Z95.1 Presence of aortocoronary bypass graft; Z79.84 Long term (current) use of oral hypoglycemic drugs
CPT/HCPCS: 36415; 70450; 74018; 76775; 80048; 80053; 80069; 81001; 82274; 82306; 82330; 82550; 82570; 82728; 82948; 83036; 83540; 83550; 83615; 83883; 83970; 84132; 84156; 84300; 84439; 84443; 84480; 84550; 85025; 85610; 85652; 86038; 86039; 86160; 86162; 86334; 86335; 87426; 92526; 92610; 93005; 96361; 96365; 96374; 96375; 97161; 97165; 99285; A9270; C9803; G0378; J0610; J1756; J7030

== ENCOUNTER 2022-12-21 09:38 | Emergency (ER) | payer OTHER, SELFPAY ==
--- NOTE | ~2022-12-21 | CT_ITS ---
EXAMINATION: CT brain wo con DATE: 12/21/2022 11:44 INDICATION: Dizziness. TECHNIQUE: Computed tomography (CT) of the head was performed without intravenous contrast. The mA wa s adjusted according to patient size. Iterative reconstruction technique was employed. Exam dose: 60 5.33 mGy-cm total exam DLP. COMPARISON: 05/30/2022 CT brain FINDINGS: There is a recent 5.7 x 8.7 x 10 mm hematoma in the superior medial aspect of the left cere bellum, with adjacent mild subarachnoid blood. Chronic infarcts noted in the right cerebellar hemisphere right lucas, right thalamus, bilateral lenti form nuclei. There is nonspecific diminished attenuation of the cerebral white matter, likely due to chronic small vessel ischemic changes. Bilateral vertebral artery and bilateral carotid siphon internal carotid artery calcifications. No intracranial mass lesion is evident. No midline shift or mass effect effect. No subdural or epidural hematoma is detected. There is central and cortical cerebral and cerebellar atrophy. Included mastoid air cells and paranasal sinuses are normally developed and aerated. No fracture or bone destruction of the cranial vault IMPRESSION: Acute 5.7 x 8.7 x 10 mm hematoma in the superior medial aspect of the left cerebellum, m ild adjacent subarachnoid blood Right cerebellar hemispheric, right lucas, right thalamus and bilateral lentiform nucleus chronic infa rcts Cerebral atherosclerosis and chronic small vessel ischemic changes of the cerebral white matter Dr. Dillard telephoned the report for on 12/21/2022 at 1201 hours to emergency room Nurse Practitioner Taras ray Reviewed, dictated and finalized at [facility]. Reviewed, dictated and finalized at location B. [employer] IMPRESSION: Acute 5.7 x 8.7 x 10 mm hematoma in the superior medial aspect of the left cerebellum, mild adjacent subarachnoid blood Right cerebellar hemispheric, right lucas, right thalamus and bilateral lentifor m nucleus chronic infarcts Cerebral atherosclerosis and chronic small vessel ischemic changes of the cereb ral white matter Dr. Dillard telephoned the report for on 12/21/2022 at 1201 hours to emergency room Nurse Practitioner Alana
--- NOTE | ~2022-12-21 | XR_ITS ---
EXAMINATION: XR chest 1V DATE: 12/21/2022 11:48 INDICATION: Dizziness. TECHNIQUE: A single frontal view of the chest was obtained. COMPARISON: Chest 2 views 01/31/2012 FINDINGS: There is no pneumonia, pleural effusion, or pneumothorax. Cardiomegaly is noted. Median fred rnotomy wires and mediastinal surgical clips are seen, likely from prior coronary artery bypass graft ing. IMPRESSION: 1. Cardiomegaly. Reviewed, dictated and finalized at location A. [employer] [facility] IMPRESSION: 1. Cardiomegaly.
[2022-12-21 09:47] VITALS: BP 167/85; PULSE 60; RESP 22; O2SAT 96
--- NOTE | 2022-12-21 09:48 | ECG_ITS ---
Measurements Intervals [place] Rate: 60 P: 28 DC: 234 QRS: 54 QRSD: 120 T: 235 QT: 491 QTc: 492 Interpretive Statements SINUS RHYTHM WITH FIRST DEGREE AV BLOCK INCOMPLETE LEFT BUNDLE BRANCH BLOCK DELAYED PRECORDIAL R/S TRANSITION ST-T WAVE ABNORMALITY IN INF/LAT LEADS- CONSIDER ISCHEMIA BASELINE WANDER- II, III, AVL, AVF ABNORMAL ECG COMPARED TO ECG 06/01/2022 09:10:56 NO SIGNIFICANT CHANGES Electronically Signed On 12-21-2022 10:43:16 [facility] by Enrique Poon D.O.
[2022-12-21 10:02] VITALS: PULSE 65
[2022-12-21 10:07] LABS: Basophils Absolute Auto 0.1 K/mm3 (0.0-0.1); Eosinophils Absolute Auto 0.5 K/mm3 (0-0.3); Eosinophils Percent Auto 7.2 % (0-4.4); Hematocrit 37.8 % (42.0-52.0); Hemoglobin 11.8 g/dL (14.0-18.0); Immature Granulocyte Absolute 0.03 K/mm3 (0.00-0.031); Immature Granulocyte Percent A 0.4 % (0-0.5); Lymphocytes Absolute Auto 0.83 K/mm3 (0.9-3.2); Lymphocytes Percent Auto 11.9 % (18.3-44.2); Mean Corpuscular HGB Conc 31.2 g/dl (32-36); Mean Corpuscular Hemoglobin 28.9 pg (26-34); Mean Corpuscular Volume 92.4 fl (80-100); Mean Platelet Volume 10.9 fl (7.4-10.4); Monocytes Absolute Auto 0.5 K/mm3 (0.1-0.6); Monocytes Percent Auto 6.8 % (2.6-8.5); Neutrophils Absolute Auto 5.1 K/mm3 (1.3-6.7); Neutrophils Percent Auto 72.7 % (45.5-73.1); Platelet Count Result 158 k/mm3 (150-375); Red Blood Count 4.09 M/mm3 (4.6-6.20); Red Cell Distribution Width 13.9 % (11.5-14.5)
[2022-12-21 10:42] LABS: Alanine Aminotransferase 17 U/L (6-50); Albumin Level 4.2 g/dL (3.5-5.1); Alkaline Phosphatase 100 U/L (38-126); Anion Gap 7 mmol/L (8-16); Aspartate Amino Transferase 17 U/L (17-59); Blood Urea Nitrogen 34 mg/dL (9-20); Calcium 8.7 mg/dL (8.4-10.2); Carbon Dioxide 22 mmol/L (22-30); Chloride 108 mmol/L (98-107); Estimated CRCL calculation 24 ml/min; Estimated Glomerular Filt Rate 25; Glucose 151 mg/dL (65-110); Potassium 4.4 mmol/L (3.4-5.0); Sodium 137 mmol/L (137-145)
[2022-12-21] MEDS: ONDANSETRON INJ 4 MG/2 ML VIAL IV PUSH (11:52)
[2022-12-21] MEDS: MECLIZINE HCL 25 MG TABLET PO (11:53)
[2022-12-21 11:54] VITALS: O2SAT 96
[2022-12-21 11:56] LABS: INR 1.4; Prothrombin Time 16.7 Seconds (11.1-14.7)
[2022-12-21 11:57] LABS: Partial Thromboplastin Time 34.9 SECONDS (22.3-36.8)
[2022-12-21 12:02] LABS: Ethanol < 10 mg/dL (<10)
--- NOTE | 2022-12-21 12:03 | ED.DIZZY ---
HPI - Dizziness General Chief Complaint: Dizziness Stated Complaint: dizzy, fall Time Seen by Provider: 12/21/22 10:54 Source: patient Mode of arrival: ambulatory Limitations: no limitations History of Present Illness HPI Narrative: 67-year-old male presents today via private vehicle with concerns of an episode of diaphoresis, dizziness and being off balance. This episode happened about 830 9:00 this morning. Patient son is currently with him when his son noticed a noise and walked into his father sweating and leaning against the wall. Patient states currently he is not dizzy anymore but he just feels off. Patient states he does have a history of a stroke many years ago but was never evaluated in the emergency department for that. States baseline he has left-sided weakness because of the stroke. States everything is at his baseline except for he just does not feel right. MD elicited complaint: dizziness, lightheadedness, near syncope, difficulty walking and disequilibrium Pertinent past history: stroke Associated symptoms: nausea, vomiting, diaphoresis and shortness of breath Associated neuro symptoms: other (Does not feel right) Related Data Home Medications Medication Instructions Recorded Confirmed aspirin 325 mg tablet,delayed 325 mg PO DAILY 01/02/20 10/18/22 release nitroglycerin 0.4 mg sublingual 0.4 mg sublingual DAILY 01/02/20 10/18/22 tablet Allergies Allergy/AdvReac Type Severity Reaction Status Date / Time metformin Allergy Mild nausea Verified 10/18/22 09:33 diarrhea Sulfa (Sulfonamide Allergy Mild rash and Verified 10/18/22 09:33 Antibiotics) redness Review of Systems Review of Systems: As per HPI CONSTITUTIONAL: Denies fever, chills, or sweats. EYES: Denies visual changes, redness, or discharge. ENT: Denies rhinorrhea, congestion, sore throat, or otalgia. CARDIOVASCULAR: Denies chest pain, palpitations, or edema. RESPIRATORY: Denies cough or dyspnea. GASTROINTESTINAL: Denies abdominal pain, nausea, vomiting, or diarrhea. GENITOURINARY: Denies dysuria or hematuria. SKIN: Denies rash or itching. MUSCULOSKELETAL: Denies back pain, joint pain, or myalgia. NEUROLOGIC: Dizziness now resolved but does not feel right. Denies headache, numbness or weakness. PSYCHIATRIC: Denies anxiety or depression. 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 The patient is lifelong nonsmoker. He does not use any marijuana illicit drugs or tobacco. His youngest son is the durable power criminal defense attorney for health care. code status full code Smoking status: Never smoker Second hand tobacco smoke exposure: No Alcohol intake: never Substance use: never Substance use type: does not use
[2022-12-21 12:17] LABS: Troponin I 0.036 ng/mL (0.000-0.034)
[2022-12-21 12:21] LABS: Appearance Urine Clear (Clear); Bilirubin Urine Negative (Negative); Blood Urine 1+ (Negative); Color Urine Yellow (Yellow); Glucose Urine UA Trace mg/dL (Negative); Ketones Urine Negative (Negative); Leukocyte Esterase Ur Negative LEU/UL (Negative); Nitrate Urine Negative (Negative); Protein Urine 2+ mg/dL (Negative); Specific Grav Ur 1.025 (1.001-1.035); Urobilinogen Urine 0.2 mg/dL (<2.0)
[2022-12-21 12:39] VITALS: BP 163/92; PULSE 63; RESP 21; O2SAT 99
[2022-12-21 12:49] LABS: Add Urine Microscopic? YES; WBC Urine 0-3 /hpf (0-3)
[2022-12-21 12:51] LABS: Squamous Epithelial Cell Urine Rare /hpf (Few)
== END 2022-12-21 13:28 | disposition short-term general hospital (02) ==
PROVIDERS: Emergency Medicine; Emergency Provider Nurse Practitioner Family; PCP Family Medicine Adolescent Medicine
DX: S06.33AA Contusion and laceration of cerebrum, unspecified, with loss of consciousness status unknown, initial encounter (principal); T14.90XA Injury, unspecified, initial encounter; I25.10 Atherosclerotic heart disease of native coronary artery without angina pectoris; I12.9 Hypertensive chronic kidney disease with stage 1 through stage 4 chronic kidney disease, or unspecified chronic kidney disease; N18.4 Chronic kidney disease, stage 4 (severe); E11.22 Type 2 diabetes mellitus with diabetic chronic kidney disease; Z79.82 Long term (current) use of aspirin
CPT/HCPCS: 36415; 70450; 71045; 80053; 80307; 81001; 84484; 85025; 85610; 85730; 93005; 96374; 99285; A9270; J2405

== ENCOUNTER 2023-01-30 12:38 | Emergency (ER) | payer OTHER, SELFPAY ==
--- NOTE | ~2023-01-30 | XR_ITS ---
XR chest 1V portable DATE: 01/30/2023 13:08 INDICATION: Cerebrovascular accident TECHNIQUE: Portable upright AP chest on January 30, 2023 at 1305 hours COMPARISON: December 21, 2022 AP chest FINDINGS: Status post sternotomy and coronary artery bypass surgery. Cardiomegaly. Mild aortic unfold ing and calcification. Mild pulmonary vascular redistribution. There is mild prominence of the minor fissure. Some Sarah B-lines are noted. Minimal infiltrate or atelectasis in the lower lung zones. No pleural effusion or pneumothorax. Osteopenia. IMPRESSION: Cardiomegaly, pulmonary vascular redistribution subpleural and pulmonary interstitial joon ma, suggesting mild congestive heart failure Reviewed, dictated and finalized at location B. IMPRESSION: Cardiomegaly, pulmonary vascular redistribution subpleural and pulm onary interstitial edema, suggesting mild congestive heart failure
--- NOTE | ~2023-01-30 | CT_ITS ---
EXAMINATION: CT brain wo con DATE: 01/30/2023 12:48 INDICATION: Recent stroke presenting with nausea and emesis TECHNIQUE: Computed tomography (CT) of the head was performed without intravenous contrast. Sagittal and coronal reconstructions were performed. The mA was adjusted according to patient size. Iterative reconstruction technique was employed. The dose-length product was 681.00 mGy-cm. COMPARISON: head CT dated 12/21/2022 FINDINGS: New intraventricular hemorrhage nearly filling the fourth and third ventricles and extending into the left and right lateral ventricles. There is also extension of a small amount of blood through the la teral foramina of Luschka and the foramen of Magendie into the subarachnoid spaces at the craniocervi kasey junction. This likely represents extension of blood from a recent prior intraperitoneal hemorrhag e which on prior CT was centered at the left cerebellar vermis. The intraparenchymal component of the hemorrhage is not appreciated in the current study. Small old lacunar infarcts at the right thalamus , bilateral lentiform nuclei and at the right anterior lucas. Additional small to moderate-sized old i nfarct in the right cerebellar hemisphere. No acute ischemic infarction or other abnormal extra axial fluid collection. There is mild scattered white matter hypoattenuation consistent with chronic small vessel ischemic disease. Symmetric prominence of the sulci and ventricles consistent with unchanged mild age-appropriate diffuse cerebral volume loss. No mass/mass effect. The orbits, paranasal sinuse s and mastoid air cells are normal. IMPRESSION: 1. New extensive intraventricular hemorrhage involving the left and right lateral ventricles, the thi rd and fourth ventricles with small amount of extension into the subarachnoid spaces at the craniocer vical junction. This might arise from the site of a previously noted left cerebellar intraparenchymal hemorrhage which is not appreciated in the current study. 2. No interval change in diffuse mild enlargement of the ventricles and sulci consistent with age-rel ated atrophy. The patient is however at risk of developing secondary entrapment and hydrocephalus due to the intraventricular hemorrhage. This and the above findings were discussed with Dr. Leroy at 1 2:50 PM. 3. No change in small old infarcts at the right cerebellum, right thalamus, right side of the lucas an d at the bilateral lentiform nuclei. Reviewed, dictated and finalized at location A. IMPRESSION: 1. New extensive intraventricular hemorrhage involving the left and right later al ventricles, the third and fourth ventricles with small amount of extension i nto the subarachnoid spaces at the craniocervical junction. This might arise fr om the site of a previously noted left cerebellar intraparenchymal hemorrhage w hich is not appreciated in the current study. 2. No interval change in diffuse mild enlargement of the ventricles and sulci c onsistent with age-related atrophy. The patient is however at risk of developin g secondary entrapment and hydrocephalus due to the intraventricular hemorrhage . This and the above findings were discussed with Dr. Leroy at 12:50 PM. 3. No change in small old infarcts at the right cerebellum, right thalamus, rig ht side of the lucas and at the bilateral lentiform nuclei.
--- NOTE | 2023-01-30 12:38 | ECG_ITS ---
Measurements Intervals [place] Rate: 67 P: 9 NC: 224 QRS: 44 QRSD: 117 T: 171 QT: 463 QTc: 490 Interpretive Statements SINUS RHYTHM WITH FIRST DEGREE AV BLOCK INCOMPLETE LEFT BUNDLE BRANCH BLOCK ABNORMAL ECG COMPARED TO ECG 12/21/2022 09:49:25 NO DIFFERENCE Electronically Signed On 01-31-2023 6:56:57 CDT by Juan José Tierney M.D.
[2023-01-30 12:40] VITALS: BP 184/109; PULSE 73; RESP 20; TEMP 36.8; O2SAT 97
[2023-01-30 12:50] VITALS: BP 184/109; PULSE 70; RESP 16; O2SAT 100
--- NOTE | 2023-01-30 12:52 | ED.NEUROSD ---
HPI - Neuro Symptoms/Deficit General Chief Complaint: Suspected CVA Stated Complaint: cva Time Seen by Provider: 01/30/23 12:47 Source: patient, EMS and RN notes reviewed Limitations: clinical condition History of Present Illness HPI Narrative: Patient is 67 years old white male came to the emergency room by ambulance from home with nausea, vomiting, change mental status, his son could not understand him, unknown onset. Patient last time was seen by his son in his normal mental status yesterday morning. At 9 AM today patient was able to call his son and talk to him on the phone, at 1155 this morning patient called his son and telling him that he is dizzy and his son could not understand his speech, went home immediately and found him vomiting with confusion. Patient is not on antiplatelet or anticoagulant medication. Patient is DNR, DNI. History of hemorrhagic CVA last month. It took me 30 minutes to get the above information from his son. Son was not available by phone or physically in our emergency room for at least 30 minutes after the patient arrived to the ED. Related Data Allergies Allergy/AdvReac Type Severity Reaction Status Date / Time Sulfa (Sulfonamide Allergy Mild rash and Verified 01/30/23 13:27 Antibiotics) redness metformin AdvReac Mild nausea Verified 01/30/23 13:27 diarrhea Review of Systems Review of Systems: ROS unobtainable: Yes unobtainable due to medical condition and unobtainable due to mental status Constitutional: Constitutional: Reports as per HPI [facility] Past Medical History Medical History Anemia in chronic kidney disease CAD (coronary artery disease), autologous vein bypass graft Chronic systolic heart failure EF 29% 01/02 CKD (chronic kidney disease) stage 4, GFR 15-29 ml/min History of CVA (cerebrovascular accident) (2011) Metabolic acidosis 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 The patient is lifelong nonsmoker. He does not use any marijuana illicit drugs or tobacco. His youngest son is the durable power divorce attorney for health care. code status full code Smoking status: Never smoker Second hand tobacco smoke exposure: No Alcohol intake: never Substance use: never Substance use type: does not use Living arrangements: alone Occupation/Education: retired Gender identity (if verbalized by the patient): Male Sexual Orientation (if Verbalized by the Patient): Straight or Heterosexual Spiritual care concerns: No Agree to blood products: Yes Exam Narrative: General appearance: Well-developed, well-nourished, moaning, dry heaving, difficult to understand unable to follow commands Skin: Normal color Head: Normocephalic, nontraumatic Eyes: Clear conjunctiva ENT: Oropharynx normal, ears normal, nose normal Neck: Supple, nontender Chest and respiratory: Airway patent, no respiratory distress, no accessory muscle use Heart: Regular rate/rhythm Abdomen: Soft, nontender, no organomegaly, quiet bowel sounds Vascular: Normal peripheral pulses, normal capil
[2023-01-30] MEDS: ONDANSETRON INJ 4 MG/2 ML VIAL 8 MG (12:59)
--- NOTE | 2023-01-30 12:59 | PC.NURSE ---
blood glucose was 161 at 1240
[2023-01-30 13:00] VITALS: BP 167/97; PULSE 73; RESP 12; O2SAT 95
[2023-01-30 13:02] LABS: Basophils Absolute Auto 0.1 K/mm3 (0.0-0.1); Basophils Percent Auto 0.8 % (0.2-1.2); Eosinophils Absolute Auto 0.4 K/mm3 (0-0.3); Eosinophils Percent Auto 5.1 % (0-4.4); Hematocrit 38.4 % (42.0-52.0); Hemoglobin 11.9 g/dL (14.0-18.0); Immature Granulocyte Absolute 0.02 K/mm3 (0.00-0.031); Immature Granulocyte Percent A 0.3 % (0-0.5); Lymphocytes Absolute Auto 0.85 K/mm3 (0.9-3.2); Lymphocytes Percent Auto 11.5 % (18.3-44.2); Mean Corpuscular Hemoglobin 28.9 pg (26-34); Mean Corpuscular Volume 93.2 fl (80-100); Mean Platelet Volume 11.1 fl (7.4-10.4); Monocytes Absolute Auto 0.6 K/mm3 (0.1-0.6); Monocytes Percent Auto 8.5 % (2.6-8.5); Neutrophils Absolute Auto 5.5 K/mm3 (1.3-6.7); Neutrophils Percent Auto 73.8 % (45.5-73.1); Platelet Count Result 154 k/mm3 (150-375); Red Blood Count 4.12 M/mm3 (4.6-6.20); Red Cell Distribution Width 14.7 % (11.5-14.5); White Blood Count 7.4 K/mm3 (4.5-10.0)
--- NOTE | 2023-01-30 13:07 | PC.NURSE ---
Dr Alegria ordered EMS lights and sirens
[2023-01-30 13:14] LABS: Alanine Aminotransferase 20 U/L (6-50); Albumin Level 4.3 g/dL (3.5-5.1); Alkaline Phosphatase 113 U/L (38-126); Anion Gap 8 mmol/L (8-16); Aspartate Amino Transferase 20 U/L (17-59); Blood Urea Nitrogen 29 mg/dL (9-20); Calcium 8.8 mg/dL (8.4-10.2); Carbon Dioxide 24 mmol/L (22-30); Chloride 112 mmol/L (98-107); Estimated Glomerular Filt Rate 28; Glucose 151 mg/dL (65-110); INR 1.4; Potassium 4.4 mmol/L (3.4-5.0); Prothrombin Time 16.9 Seconds (11.1-14.7); Sodium 144 mmol/L (137-145)
[2023-01-30 13:15] VITALS: BP 166/102; PULSE 67; RESP 20; O2SAT 98
[2023-01-30 13:15] LABS: Partial Thromboplastin Time 32.4 SECONDS (22.3-36.8)
[2023-01-30 13:16] VITALS: BP 166/102; PULSE 73; RESP 24; O2SAT 100
[2023-01-30 13:25] LABS: Troponin I 0.034 ng/mL (0.000-0.034)
--- NOTE | 2023-01-30 13:32 | PC.NURSE ---
Originally order for Nicardipine by ERP. BP control meds switched to labetlol pushes as needed for BP. See MAR
[2023-01-30] MEDS: LABETALOL HCL INJ 100 MG/20 ML VIAL (13:35)
--- NOTE | 2023-01-30 13:35 | PC.NURSE ---
10MG LABETALOL GIVEN IVP PRIOR TO EMS TAKING PT
== END 2023-01-30 13:36 | disposition short-term general hospital (02) ==
PROVIDERS: Emergency Medicine; Emergency Provider Emergency Medicine; PCP Family Medicine Adolescent Medicine
DX: I62.9 Nontraumatic intracranial hemorrhage, unspecified (principal); E11.22 Type 2 diabetes mellitus with diabetic chronic kidney disease; N18.4 Chronic kidney disease, stage 4 (severe); I69.344 Monoplegia of lower limb following cerebral infarction affecting left non-dominant side; N25.81 Secondary hyperparathyroidism of renal origin; E87.20 Acidosis, unspecified; Z95.1 Presence of aortocoronary bypass graft; Z66 Do not resuscitate; Z79.84 Long term (current) use of oral hypoglycemic drugs; I44.0 Atrioventricular block, first degree; I44.7 Left bundle-branch block, unspecified
CPT/HCPCS: 36415; 70450; 71045; 80053; 84484; 85025; 85610; 85730; 93005; 96374; 96375; 99285; J2405